=== PATIENT | female | born 1955 | race Caucasian/White ===

== ENCOUNTER → 2017-11-25 09:43 | Outpatient (CLI) | payer OTHER, SELFPAY ==
[2017-11-25 10:34] LABS: Alanine Aminotransferase 23 IU/L (9-52); Albumin 4.2 g/dL (3.5-5.0); Albumin Globulin Ratio 1.6 (1.0-2.8); Alkaline Phosphatase 77 U/L (38-126); Aspartate Aminotransferase 17 IU/L (14-36); BUN Creatinine Ratio 21.4 (6-22); Bilirubin Total 0.8 mg/dL (0.2-1.3); Blood Urea Nitrogen 15 mg/dL (7-17); Calcium 10.2 mg/dL (8.4-10.2); Carbon Dioxide 31 mmol/L (22-32); Chloride 100 mmol/L (98-107); Estimated Glomerular Filt Rate > 60.0 mL/min (>60); Globulin 2.6 g/dL (1.7-4.1); Glucose 170 mg/dL (80-110); HEMOLYSIS < 15 (0-50); Potassium 5.2 mmol/L (3.4-5.1); Sodium 139 mmol/L (137-145); Total Protein 6.8 g/dL (6.3-8.2)
[2017-11-25 10:50] LABS: Hemoglobin A1C% w Est Avg Glu 7.4 % (4.0-6.0)
== END ==
PROVIDERS: PCP Family Medicine; Visit Provider Family Medicine
DX: E11.9 Type 2 diabetes mellitus without complications (principal)
CPT/HCPCS: 36415; 80053; 83036

== ENCOUNTER → 2018-03-27 08:21 | Outpatient (CLI) | payer OTHER, SELFPAY ==
[2018-03-27 09:09] LABS: Hemoglobin A1C% w Est Avg Glu 7.3 % (4.0-6.0)
[2018-03-27 09:37] LABS: Alanine Aminotransferase 30 IU/L (9-52); Albumin 4.1 g/dL (3.5-5.0); Albumin Globulin Ratio 1.5 (1.0-2.8); Alkaline Phosphatase 77 U/L (38-126); Aspartate Aminotransferase 28 IU/L (14-36); Bilirubin Total 0.7 mg/dL (0.2-1.3); Blood Urea Nitrogen 14 mg/dL (7-17); Calcium 10.3 mg/dL (8.4-10.2); Carbon Dioxide 28 mmol/L (22-32); Chloride 104 mmol/L (98-107); Cholesterol 180 mg/dL (140-199); Estimated Glomerular Filt Rate > 60.0 mL/min (>60); Globulin 2.7 g/dL (1.7-4.1); Glucose 159 mg/dL (80-110); HDL Cholesterol 71 mg/dL (40-60); HEMOLYSIS < 15 (0-50); LDL Cholesterol Calculated 77 mg/dL (<100); Potassium 4.9 mmol/L (3.4-5.1); Sodium 142 mmol/L (137-145); Total Protein 6.8 g/dL (6.3-8.2); Triglycerides 159 mg/dL (35-150)
== END ==
PROVIDERS: PCP Family Medicine; Visit Provider Family Medicine
DX: E03.9 Hypothyroidism, unspecified (principal); E11.65 Type 2 diabetes mellitus with hyperglycemia; I10 Essential (primary) hypertension; Z79.4 Long term (current) use of insulin
CPT/HCPCS: 36415; 80053; 80061; 83036

== ENCOUNTER → 2018-09-26 10:36 | Outpatient (CLI) | payer OTHER, SELFPAY ==
--- NOTE | 2018-09-26 10:39 | DI.RAD.S_ITS ---
PROCEDURE: XR CHEST 2V INDICATIONS: shortness of breath TECHNIQUE: 2 views of the chest were acquired. COMPARISON: [facility], , CHEST 2 VIEW, 09/07/2015, 15:30. FINDINGS: Surgical changes and devices: None. Lungs and pleura: Lungs are clear. No pleural effusions or pneumothorax. Mediastinum: Mediastinal contours are normal. Heart size is normal. Bones and chest wall: No suspicious bony abnormalities. Soft tissues appear unremarkable. IMPRESSION: No acute cardiopulmonary disease. Dictated by: Bryson Martini M.D. on 09/26/2018 at 11:06 Approved by: Bryson Martini M.D. on 09/26/2018 at 11:06
== END ==
PROVIDERS: PCP Family Medicine; Visit Provider Family Medicine
DX: R06.02 Shortness of breath (principal); J45.909 Unspecified asthma, uncomplicated
CPT/HCPCS: 71046

== ENCOUNTER → 2018-09-27 09:38 | Outpatient (CLI) | payer OTHER, SELFPAY ==
[2018-09-27 10:40] LABS: Add Manual Diff / Slide Review NO; Basophils Absolute Auto 100 /uL (0-100); Eosinophils Absolute Auto 200 /uL (0-450); Eosinophils Percent Auto 2.6 % (2-4); Hemoglobin 14.4 g/dL (12.0-16.0); Lymphocytes Absolute Auto 2100 /uL (1100-4500); Lymphocytes Percent Auto 28.7 % (25-40); Mean Corpuscular HGB Conc 34.2 % (30-36); Mean Corpuscular Hemoglobin 30.6 PG (26-34); Mean Corpuscular Volume 89.5 fL (80-100); Monocytes Absolute Auto 600 /uL (0-900); Monocytes Percent Auto 7.8 % (3-14); Neutrophils Absolute Auto 4300 /uL (1500-7000); Neutrophils Percent Auto 59.9 % (50-75); Platelet Count 301 X10^3/uL (150-400); Red Blood Cell Count 4.69 X10^6/uL (4.0-5.2); Red Cell Distribution Width 13.6 % (11.6-14.8); White Blood Cell Count 7.2 X10^3/uL (4.5-11.0)
[2018-09-27 10:44] LABS: Appearance Urine UA CLEAR; Bilirubin Urine UA NEGATIVE (NEGATIVE); Color Urine UA YELLOW; Glucose Urine UA NEGATIVE (Negative); Ketones Urine UA NEGATIVE (NEGATIVE); Leukocyte Esterase Urine UA NEGATIVE (NEGATIVE); Nitrite Urine UA NEGATIVE (Negative); Occult Blood Urine UA NEGATIVE (Negative); Protein Urine UA NEGATIVE (Negative); Specific Gravity Urine UA 1.025 (1.000-1.035); Urobilinogen Urine UA 0.2 E.U./dL (0.2)
[2018-09-27 10:51] LABS: Hemoglobin A1C% w Est Avg Glu 7.5 % (4.0-6.0)
[2018-09-27 11:11] LABS: Alanine Aminotransferase 14 IU/L (9-52); Albumin Globulin Ratio 1.3 (1.0-2.8); Alkaline Phosphatase 91 U/L (38-126); Aspartate Aminotransferase 18 IU/L (14-36); Bilirubin Total 0.5 mg/dL (0.2-1.3); Blood Urea Nitrogen 9 mg/dL (7-17); Calcium 9.3 mg/dL (8.4-10.2); Carbon Dioxide 26 mmol/L (22-32); Chloride 104 mmol/L (98-107); Cholesterol 167 mg/dL (140-199); Estimated Glomerular Filt Rate > 60.0 mL/min (>60); Globulin 3.1 g/dL (1.7-4.1); Glucose 161 mg/dL (80-110); HDL Cholesterol 58 mg/dL (40-60); HEMOLYSIS 16 (0-50); LDL Cholesterol Calculated 85 mg/dL (<100); Potassium 4.4 mmol/L (3.4-5.1); Sodium 137 mmol/L (137-145); Total Protein 7.1 g/dL (6.3-8.2); Triglycerides 121 mg/dL (35-150)
[2018-09-27 11:14] LABS: B Type Natriuretic Peptide < 100 (<100)
[2018-09-27 11:26] LABS: Free T3, Triiodothyronine Free 3.37 pg/mL (2.77-5.27); Free T4, Direct Thyroxine 0.98 ng/dL (0.78-2.19)
[2018-09-27 11:39] LABS: Thyroid Stimulating Hormone 0.77 uIU/mL (0.47-4.68)
== END ==
PROVIDERS: PCP Family Medicine; Visit Provider Family Medicine
DX: E11.65 Type 2 diabetes mellitus with hyperglycemia (principal); E66.01 Morbid (severe) obesity due to excess calories; E78.5 Hyperlipidemia, unspecified; I10 Essential (primary) hypertension; J45.909 Unspecified asthma, uncomplicated; R06.02 Shortness of breath; Z79.4 Long term (current) use of insulin
CPT/HCPCS: 36415; 80053; 80061; 81003; 83036; 83880; 84439; 84443; 84481; 85025

== ENCOUNTER → 2019-02-15 10:04 | Outpatient (CLI) | payer OTHER, SELFPAY ==
[2019-02-15 11:12] LABS: Hemoglobin A1C% w Est Avg Glu 7.5 % (4.0-6.0)
[2019-02-15 11:15] LABS: Alanine Aminotransferase 17 IU/L (<35); Albumin 4.3 g/dL (3.5-5.0); Albumin Globulin Ratio 1.7 (1.0-2.8); Alkaline Phosphatase 89 U/L (38-126); Aspartate Aminotransferase 20 IU/L (14-36); BUN Creatinine Ratio 23.3 (6-22); Bilirubin Total 0.8 mg/dL (0.2-1.3); Blood Urea Nitrogen 14 mg/dL (7-17); Carbon Dioxide 27 mmol/L (22-32); Chloride 104 mmol/L (98-107); Cholesterol 198 mg/dL (140-199); Estimated Glomerular Filt Rate > 60.0 mL/min (>60); Globulin 2.6 g/dL (1.7-4.1); Glucose 169 mg/dL (80-110); HDL Cholesterol 63 mg/dL (40-60); HEMOLYSIS < 15 (0-50); LDL Cholesterol Calculated 104 mg/dL (<100); Potassium 4.9 mmol/L (3.4-5.1); Sodium 139 mmol/L (137-145); Total Protein 6.9 g/dL (6.3-8.2); Triglycerides 154 mg/dL (35-150)
== END ==
PROVIDERS: PCP Family Medicine; Visit Provider Family Medicine
DX: E11.65 Type 2 diabetes mellitus with hyperglycemia (principal); Z79.4 Long term (current) use of insulin
CPT/HCPCS: 36415; 80053; 80061; 83036

== ENCOUNTER 2019-06-10 12:52 | Emergency (ER) | payer MEDICARE, SELFPAY ==
[2019-06-10 13:00] VITALS: BP 171/86; PULSE 89; RESP 18; TEMP 37; O2SAT 98
[2019-06-10 14:57] LABS: Amorphous Sediment Urine 1+; Bacteria Urine Few (2-10); Culture Indicated Urine Specimen Cultured; Mucus Urine 1+ (Negative); RBC Urine 30-100/HPF (0-5/HPF); Squamous Epithelial Cell Urine 1-5 /HPF (0-5/HPF); WBC Urine 1-5/HPF (0-5/HPF)
[2019-06-10 15:15] LABS: Add Manual Diff / Slide Review NO; Basophils Absolute Auto 100 /uL (0-100); Basophils Percent Auto 0.6 % (0-2); Eosinophils Absolute Auto 200 /uL (0-450); Eosinophils Percent Auto 1.5 % (2-4); Hemoglobin 14.3 g/dL (12.0-16.0); Lymphocytes Absolute Auto 1500 /uL (1100-4500); Lymphocytes Percent Auto 13.4 % (25-40); Mean Corpuscular HGB Conc 33.3 % (30-36); Mean Corpuscular Hemoglobin 30.3 PG (26-34); Mean Corpuscular Volume 90.8 fL (80-100); Monocytes Absolute Auto 800 /uL (0-900); Monocytes Percent Auto 7.1 % (3-14); Neutrophils Absolute Auto 8800 /uL (1500-7000); Neutrophils Percent Auto 77.4 % (50-75); Platelet Count 305 X10^3/uL (150-400); Red Blood Cell Count 4.74 X10^6/uL (4.0-5.2); Red Cell Distribution Width 13.5 % (11.6-14.8); White Blood Cell Count 11.3 X10^3/uL (4.5-11.0)
[2019-06-10] MEDS: ONDANSETRON 4 MG/2 ML INJ IV (15:31)
[2019-06-10 15:32] LABS: Prothrombin Time 11.5 SECONDS (10.1-12.7)
[2019-06-10] MEDS: SODIUM CHLORIDE 0.9% 1,000 ML 1000 ML IV (15:32)
[2019-06-10] MEDS: MORPHINE 4 MG/ML INJ IV (15:32)
[2019-06-10 15:34] LABS: PTT Partial Thromboplastin Tim 34 SECONDS (26.4-36.2)
[2019-06-10 15:38] LABS: Alanine Aminotransferase 18 IU/L (<35); Albumin 4.4 g/dL (3.5-5.0); Albumin Globulin Ratio 1.4 (1.0-2.8); Alkaline Phosphatase 81 U/L (38-126); Amylase 92 U/L (30-110); Aspartate Aminotransferase 23 IU/L (14-36); BUN Creatinine Ratio 17.1 (6-22); Bilirubin Total 0.4 mg/dL (0.2-1.3); Blood Urea Nitrogen 12 mg/dL (7-17); Calcium 10.3 mg/dL (8.4-10.2); Carbon Dioxide 28 mmol/L (22-32); Chloride 105 mmol/L (98-107); Estimated Glomerular Filt Rate > 60.0 mL/min (>60); Globulin 3.2 g/dL (1.7-4.1); Glucose 179 mg/dL (80-110); HEMOLYSIS 18 (0-50); Lipase 80 U/L (23-300); Potassium 4.7 mmol/L (3.4-5.1); Sodium 141 mmol/L (137-145); Total Protein 7.6 g/dL (6.3-8.2)
--- NOTE | 2019-06-10 15:53 | DI.CT.S_ITS ---
PROCEDURE: CT ABDOMEN PELVIS W CON INDICATIONS: llq pain TECHNIQUE: After the administration of intravenous contrast, 5 mm thick sections acquired from the diaphragm to the symphysis. 5 mm coronal and sagittal reformats were acquired. For radiation dose reduction, the following was used: automated exposure control, adjustment of mA and/or kV according to patient size. COMPARISON: [facility], CT, ABDOMEN/PELVIS WITH CONTRAST, 04/28/2016, 8:15. FINDINGS: Image quality: Excellent. ABDOMEN: Lung bases: Lung bases are clear. Heart size is normal. Solid organs: Liver is normal in size and enhancement. Hepatic steatosis is present. Gallbladder has been removed. Common bile duct is mildly prominent measuring 10 mm, unchanged. Pancreas enhances normally. Spleen is normal in size and enhancement. No adrenal nodules. Kidneys demonstrate normal size and enhancement. There is very minimal appearance of pelviocaliectasis within the left kidney. Punctate calcification is noted within the distal ureter approximately 5 mm proximal to the ureterovesicular junction. Bilateral renal cysts are noted. Peritoneum and bowel: Bowel loops are nonobstructive. The transverse, descending and sigmoid colon are incompletely distended. Nodes and vessels: No retroperitoneal or mesenteric adenopathy by size criteria. Aorta and inferior vena cava are normal in size. Miscellaneous: No ventral hernias. PELVIS: Genitourinary: Bladder wall thickness is normal. Miscellaneous: No inguinal hernias or adenopathy. Bones: No suspicious bony lesions. No vertebral body compression fractures. IMPRESSION: 1. Punctate calcification within the distal left ureter as above. Minimal left pelviocaliectasis is noted. 2. Mildly thickened appearance of the left colon, possibly related to incomplete distention. While developing colitis cannot be definitively excluded, it is felt to be less likely in absence of appropriate clinical symptoms. Dictated by: Deb Slater M.D. on 06/10/2019 at 16:21 Approved by: Deb Slater M.D. on 06/10/2019 at 16:25
[2019-06-10] MEDS: KETOROLAC 60 MG/2 ML VIAL 30 MG IV (17:33)
[2019-06-10 18:23] VITALS: BP 125/75; PULSE 80; RESP 16; O2SAT 97
--- NOTE | 2019-06-10 19:12 | ED.FEMALEGU ---
HPI - Female Genitourinary <Kathleen Lemer, STAFF SONOGRAPHER-BC - Last Filed: 06/10/19 19:17> General Chief complaint: Urogenital-Female Stated complaint: Extreme left side abd pain Time Seen by Provider: 06/10/19 14:27 Source: patient and family Mode of arrival: Wheelchair Limitations: no limitations History of Present Illness HPI Narrative: The patient is a 63-year-old female former smoker with history of type 2 diabetes, hypertension hyperlipidemia who presents with a chief complaint of left inguinal pain. She states that the pain is also in her left flank. She denies any personal history of kidney stones, but states there is a strong family history. She states she feels like she has to urinate, but then can't go. She states the pain is colicky in nature comes and goes and is severe enough that she feels like she is going to vomit. She states the pain is worse than childbirth. She denies any dysuria, fevers. She denies any vaginal discharge. She is concerned about kidney stones. She states that the pain radiates down her left leg. She states it is sudden onset, approximately 2 hours prior to arrival. Related Data Home Medications Medication Instructions Recorded Confirmed [facility] syr/needle each 03/28/18 06/10/19 aspirin 81 mg tablet,delayed 81 mg PO DAILY 11/20/18 06/10/19 release Syringes 1 syr DIRECTED 06/10/19 06/10/19 albuterol sulfate 3 ml INH Q4HP PRN 06/10/19 06/10/19 duloxetine 60 mg PO DAILY 06/10/19 06/10/19 insulin NPH isoph U-100 human 26 unit SUBCUT DAILY 06/10/19 06/10/19 [Humulin N NPH U-100 Insulin] liothyronine [Cytomel] 5 mcg PO DAILY 06/10/19 06/10/19 lisinopril 20 mg PO QPM 06/10/19 06/10/19 omeprazole 20 mg PO DAILY 06/10/19 06/10/19 simvastatin 20 mg PO BEDTIME 06/10/19 06/10/19 Previous Rx's Medication Instructions Recorded albuterol sulfate 90 mcg/actuation 2 puff INHALATION Q4-6H PRN #8 gram 11/28/17 aerosol inhaler Delica Lancets #100 each 12/28/17 Verio IQ Rechargeable meter #1 ea 12/28/17 Verio IQ test strips #100 each 12/28/17 benzonatate 100 mg capsule 100 mg PO TIDP PRN #30 cap 09/26/18 metformin 500 mg tablet 500 mg PO BID #180 tab 02/27/19 levothyroxine 50 mcg tablet 50 mcg PO QDAY #90 tab 04/01/19 lorazepam 2 mg tablet 2 mg PO BIDP PRN #60 tab 05/09/19 montelukast 10 mg tablet 10 mg PO QPM #30 tab 05/22/19 hydrocodone-acetaminophen [Medon] 1 tab PO Q4-6H PRN #10 tab 06/10/19 ketorolac 10 mg PO TID PRN #15 tab 06/10/19 ondansetron 4 mg PO Q6H PRN #20 tab 06/10/19 tamsulosin [Flomax] 0.4 mg PO DAILY #7 cap 06/10/19 Allergies Allergy/AdvReac Type Severity Reaction Status Date / Time No Known Drug Allergies Allergy Verified 03/12/19 11:31 Review of Systems <CRISPIN Dior - Last Filed: 06/10/19 19:17> Review of Systems Narrative: GENERAL: Denies chills, fatigue, malaise, fever, sweats. HEENT: Denies sinus pain, ear pain, sore throat, difficulty swallowing, dizziness. RESPIRATORY: Denies dyspnea, cough, wheezing, hemoptysis, sputum. CARDIOVASCULAR: Denies chest pain, palpitations, orthopnea, edema, GASTROINTESTINAL: See HPI : See HPI MUSCULOSKELETAL: denies weakness, joint pain, or bony pain SKIN: Denies rash, skin lesions, or other NEUROLOGIC: Denies weakness, headache, numbness, change in speech, confusion, seizures, incoordination. PSYCHIATRIC: No concerning psychosocial issues. 12 point review of systems is negative except for those stated above Patient History <CRISPIN Dior - Last Filed: 06/10/19 19:17> Medical History Depression (Inactive) Depression (Chronic) Diabetes (Inactive) Diabetes (Chronic) Fibromyalgia (Inactive) Fibromyalgia (Chronic) Hyperlipemia (Chronic) Hypertension (Chronic) Hypothyroidism (Chronic) Neuropathy (Chronic) Osteoarthritis (Chronic) Surgical History Hx of foot surgery (Resolved Unknown) Hx of hysterectomy (Resolved Unknown) Hx of knee surgery (Resolved Unknown) Family History Father Cancer Diabetes mellitus Substance Use Type: does not use Exam <CRISPIN Dior - Last Filed: 06/10/19 19:17> Narrative Exam Narrative: GENERAL: Obese female, appears uncomfortable HEAD: Atraumatic. Normocephalic. No temporal or scalp tenderness. EYES: Pupils equal round and reactive. Extraocular motions intact. No scleral icterus. No injection or drainage. ENT: Nose without bleeding, purulent drainage or septal hematoma. Throat without erythema, tonsillar hypertrophy or exudate. Uvula midline. Airway patent. NECK: Trachea midline. No JVD or lymphadenopathy. Supple, nontender, no meningeal signs. CARDIOVASCULAR: Regular rate and rhythm RESPIRATORY: Clear to auscultation. Breath sounds equal bilaterally. No wheezes, rales, or rhonchi. No cough. No increased respiratory effort. No accessory muscle use. GASTROINTESTINAL: Abdomen soft, active bowel sounds all 4 quadrants, pain to palpation left lower quadrant. No guarding noted. EXTREMITIES: No clubbing, cyanosis, or edema. No joint tenderness, effusion, or edema noted. BACK: Nontender without deformity or crepitance. CVA tenderness left side. NEURO: AOx3. SKIN: No rash or erythema on visible skin Initial Vital Signs Initial Vital Signs: Vital Signs Temperature 98.6 F 06/10/19 13:00 Pulse Rate 89 06/10/19 13:00 Respiratory Rate 18 06/10/19 13:00 Blood Pressure 171/86 H 06/10/19 13:00 Pulse Oximetry 98 06/10/19 13:00 <Kathleen Gomes DO - Last Filed: 06/10/19 19:59> Initial Vital Signs Initial Vital Signs: Vital Signs Temperature 98.6 F 06/10/19 13:00 Pulse Rate 89 06/10/19 13:00 Respiratory Rate 18 06/10/19 13:00 Blood Pressure 171/86 H 06/10/19 13:00 Pulse Oximetry 98 02/24/20 13:00 Scores <CRISPIN Dior - Last Filed: 06/10/19 19:17> GCS Elliott coma scale eye opening: Spontaneous Elliott coma scale verbal response: Orientated [place] coma scale motor response: Obey commands Elliott coma scale total score: 15 Course <LEROY DiorBC - Last Filed: 06/10/19 19:17> Orders Ordered: ED Orders 06/10/19 13:32 EKG-12 Lead Stat 06/10/19 14:45 Urine Culture Stat Urine Microscopic Stat 06/10/19 15:00 Complete Blood Count AUTO DIFF Stat 06/10/19 15:20 Amylase Stat Comprehensive Metabolic Panel Stat Lipase Stat Partial Thromboplastin Time Stat Prothrombin Time INR Stat 06/10/19 15:53 CT abdomen pelvis w con Stat Discontinued Medications Sodium Chloride (Normal Saline 0.9%) 1,000 mls @ 1,000 mls/hr IV BOLUS ONE Stop: 06/10/19 15:33 Last Infusion: 06/10/19 18:05 Dose: 0 mls/hr Documented by: Admin: 06/10/19 15:32 Dose: 1,000 mls/hr Documented by: NEELA Ketorolac Tromethamine (Toradol) 30 mg IV NOW ONE Stop: 06/10/19 16:38 Last Admin: 06/10/19 17:33 Dose: 30 mg Documented by: NEELA Morphine Sulfate (Morphine) 4 mg IV NOW ONE Stop: 06/10/19 14:35 Last Admin: 06/10/19 15:32 Dose: 4 mg Documented by: NEELA Ondansetron HCl (Zofran) 4 mg IV NOW ONE Stop: 06/10/19 14:35 Last Admin: 06/10/19 15:31 Dose: 4 mg Documented by: NEELA Vital Signs Vital signs: Vital Signs - 8 hr 06/10/19 13:00 06/10/19 18:23 Temperature 98.6 F Pulse Rate 89 80 Respiratory Rate 18 16 Blood Pressure 171/86 H 125/75 Pulse Oximetry 98 97 <Kathleen Gomes DO - Last Filed: 06/10/19 19:59> Orders Ordered: ED Orders 06/10/19 13:32 EKG-12 Lead Stat 06/10/19 14:45 Urine Culture Stat Urine Microscopic Stat 06/10/19 15:00 Complete Blood Count AUTO DIFF Stat 06/10/19 15:20 Amylase Stat Comprehensive Metabolic Panel Stat Lipase Stat Partial Thromboplastin Time Stat Prothrombin Time INR Stat 06/10/19 15:53 CT abdomen pelvis w con Stat Discontinued Medications Sodium Chloride (Normal Saline 0.9%) 1,000 mls @ 1,000 mls/hr IV BOLUS ONE Stop: 06/10/19 15:33 Last Infusion: 06/10/19 18:05 Dose: 0 mls/hr Documented by: Admin: 06/10/19 15:32 Dose: 1,000 mls/hr Documented by: NEELA Ketorolac Tromethamine (Toradol) 30 mg IV NOW ONE Stop: 06/10/19 16:38 Last Admin: 06/10/19 17:33 Dose: 30 mg Documented by: NEELA Morphine Sulfate (Morphine) 4 mg IV NOW ONE Stop: 06/10/19 14:35 Last Admin: 06/10/19 15:32 Dose: 4 mg Documented by: NEELA Ondansetron HCl (Zofran) 4 mg IV NOW ONE Stop: 06/10/19 14:35 Last Admin: 06/10/19 15:31 Dose: 4 mg Documented by: NEELA Vital Signs Vital signs: Vital Signs - 8 hr 06/10/19 13:00 06/10/19 18:23 Temperature 98.6 F Pulse Rate 89 80 Respiratory Rate 18 16 Blood Pressure 171/86 H 125/75 Pulse Oximetry 98 97 MDM - Female Genitourinary <JUDY Dior- - Last Filed: 06/10/19 19:17> Lab Data Result diagrams: 06/10/19 15:00 06/10/19 15:20 Labs: Lab Results 06/10/19 06/10/19 06/10/19 Range/Units 14:45 15:00 15:20 WBC 11.3 H (4.5-11.0) X10^3/uL RBC 4.74 (4.0-5.2) X10^6/uL Hgb 14.3 (12.0-16.0) g/dL Hct 43.0 (36-46) % MCV 90.8 (80-100) fL MCH 30.3 (26-34) PG MCHC 33.3 (30-36) % RDW 13.5 (11.6-14.8) % Plt Count 305 (150-400) X10^3/uL Neut % (Auto) 77.4 H (50-75) % Lymph % (Auto) 13.4 L (25-40) % [place] % (Auto) 7.1 (3-14) % Eos % (Auto) 1.5 L (2-4) % Baso % (Auto) 0.6 (0-2) % Neut # (Auto) 8800 H (4722-6431) /uL Lymph # (Auto) 1500 (9138-3992) /uL [place] # (Auto) 800 (0-900) /uL Eos # (Auto) 200 (0-450) /uL Baso # (Auto) 100 (0-100) /uL PT 11.5 (10.1-12.7) SECONDS INR 1.0 (0.9-1.3) APTT 34 (26.4-36.2) SECONDS Sodium (137-145) mmol/L Potassium (3.4-5.1) mmol/L Chloride (98-107) mmol/L Carbon Dioxide (22-32) mmol/L BUN (7-17) mg/dL Creatinine (0.52-1.04) mg/dL Estimated GFR (>60) mL/min BUN/Creatinine Ratio (6-22) Glucose (80-110) mg/dL Calcium (8.4-10.2) mg/dL Total Bilirubin (0.2-1.3) mg/dL AST (14-36) IU/L ALT (<35) IU/L Alkaline Phosphatase (38-126) U/L Total Protein (6.3-8.2) g/dL Albumin (3.5-5.0) g/dL Globulin (1.7-4.1) g/dL Albumin/Globulin Ratio (1.0-2.8) Amylase (30-110) U/L Lipase (23-300) U/L Urine RBC 30-100/hpf H (0-5/HPF) Urine WBC 1-5/hpf (0-5/HPF) Ur Squamous Epith Cells 1-5 /hpf (0-5/HPF) Amorphous Sediment 1+ Urine Bacteria Few (2-10) H (None) Urine Mucus 1+ H (Negative) Ur Culture Indicated? Specimen cultured 06/10/19 06/10/19 Range/Units 15:20 15:20 WBC (4.5-11.0) X10^3/uL RBC (4.0-5.2) X10^6/uL Hgb (12.0-16.0) g/dL Hct (36-46) % MCV (80-100) fL MCH (26-34) PG MCHC (30-36) % RDW (11.6-14.8) % Plt Count (150-400) X10^3/uL Neut % (Auto) (50-75) % Lymph % (Auto) (25-40) % [place] % (Auto) (3-14) % Eos % (Auto) (2-4) % Baso % (Auto) (0-2) % Neut # (Auto) (8545-8394) /uL Lymph # (Auto) (5490-5952) /uL [place] # (Auto) (0-900) /uL Eos # (Auto) (0-450) /uL Baso # (Auto) (0-100) /uL PT (10.1-12.7) SECONDS INR (0.9-1.3) APTT (26.4-36.2) SECONDS Sodium 141 (137-145) mmol/L Potassium 4.7 (3.4-5.1) mmol/L Chloride 105 (98-107) mmol/L Carbon Dioxide 28 (22-32) mmol/L BUN 12 (7-17) mg/dL Creatinine 0.70 (0.52-1.04) mg/dL Estimated GFR > 60.0 (>60) mL/min BUN/Creatinine Ratio 17.1 (6-22) Glucose 179 H (80-110) mg/dL Calcium 10.3 H (8.4-10.2) mg/dL Total Bilirubin 0.4 (0.2-1.3) mg/dL AST 23 (14-36) IU/L ALT 18 (<35) IU/L Alkaline Phosphatase 81 (38-126) U/L Total Protein 7.6 (6.3-8.2) g/dL Albumin 4.4 (3.5-5.0) g/dL Globulin 3.2 (1.7-4.1) g/dL Albumin/Globulin Ratio 1.4 (1.0-2.8) Amylase 92 (30-110) U/L Lipase 80 (23-300) U/L Urine RBC (0-5/HPF) Urine WBC (0-5/HPF) Ur Squamous Epith Cells (0-5/HPF) Amorphous Sediment Urine Bacteria (None) Urine Mucus (Negative) Ur Culture Indicated? Urine Dip Bedside Urine Glucose Negative Bedside Urine Bilirubin - Negative Bedside Urine Ketone - Negative Urine Specific [place] 1.025 Bedside Urine Occult Blood +++ Bedside Urine pH 5.0 Bedside Urine Protein +/- 15 Bedside Urine Urobilinogen - Negative Bedside Urine Nitrite - Negative Bedside Urine Leukocytes - Negative Esterase Imaging Data CT scan - abdomen/pelvis: Radiologist's Impression: [address] [place] [id number] [address] Scan Report Signed Patient: Isa Hoffman JMR#: [id number] : 8Acct:[id number] Age/Sex: 63 / FDate of Service: 06/10/19 Loc: ED Accession Number: [id number] Procedure: CT abdomen pelvis w con Ordering Provider: Kathleen Leonard STAFF SONOGRAPHER- PROCEDURE: CT ABDOMEN PELVIS W CON INDICATIONS: llq pain TECHNIQUE: After the administration of intravenous contrast, 5 mm thick sections acquired from the diaphragm to the symphysis. 5 mm coronal and sagittal reformats were acquired. For radiation dose reduction, the following was used: automated exposure control, adjustment of mA and/or kV according to patient size. COMPARISON: [facility], CT, ABDOMEN/PELVIS WITH CONTRAST, 04/28/2016, 8:15. FINDINGS: Image quality: Excellent. ABDOMEN: Lung bases: Lung bases are clear. Heart size is normal. Solid organs: Liver is normal in size and enhancement. Hepatic steatosis is present. Gallbladder has been removed. Common bile duct is mildly prominent measuring 10 mm, unchanged. Pancreas enhances normally. Spleen is normal in size and enhancement. No adrenal nodules. Kidneys demonstrate normal size and enhancement. There is very minimal appearance of pelviocaliectasis within the left kidney. Punctate calcification is noted within the distal ureter approximately 5 mm proximal to the ureterovesicular junction. Bilateral renal cysts are noted. Peritoneum and bowel: Bowel loops are nonobstructive. The transverse, descending and sigmoid colon are incompletely distended. Nodes and vessels: No retroperitoneal or mesenteric adenopathy by size criteria. Aorta and inferior vena cava are normal in size. Miscellaneous: No ventral hernias. PELVIS: Genitourinary: Bladder wall thickness is normal. Miscellaneous: No inguinal hernias or adenopathy. Bones: No suspicious bony lesions. No vertebral body compression fractures. IMPRESSION: 1. Punctate calcification within the distal left ureter as above. Minimal left pelviocaliectasis is noted. 2. Mildly thickened appearance of the left colon, possibly related to incomplete distention. While developing colitis cannot be definitively excluded, it is felt to be less likely in absence of appropriate clinical symptoms. Dictated by: Deb Slater M.D. on 06/10/2019 at 16:21 Approved by: Deb Slater M.D. on 06/10/2019 at 16:25 [facility] Narrative Medical decision making narrative: The patient is a 63-year-old female who presents with a chief complaint of left lower quadrant and left sided pain. Imaging is concerning for punctate stones and the left ureter. CT with contrast was obtained as the patient has no history of stones. She denies any dysuria, has no nitrates in urine, do not see need for antibiotic therapy at this point time. She is able to tolerate p.o. food and fluids in oral medications. I discussed at length the importance of follow-up with primary care provider. Can medially she has an appointment for 10:30 a.m. tomorrow. I discussed at length monitoring for signs symptoms of infection, straining her urine, not combining narcotics with benzos, sedating agents or alcohol. Discussed not combining Toradol with any anti-inflammatory medications. Give her prescriptions of Toradol, Medon, Zofran and Flomax. Patient has no questions or concerns upon discharge and states understanding of return precautions of any acute concerns and would like down fluids as well as follow-up care. <Kathleen Gomes, DO - Last Filed: 06/10/19 19:59> Lab Data Labs: Lab Results 06/10/19 06/10/19 06/10/19 Range/Units 14:45 15:00 15:20 WBC 11.3 H (4.5-11.0) X10^3/uL RBC 4.74 (4.0-5.2) X10^6/uL Hgb 14.3 (12.0-16.0) g/dL Hct 43.0 (36-46) % MCV 90.8 (80-100) fL MCH 30.3 (26-34) PG MCHC 33.3 (30-36) % RDW 13.5 (11.6-14.8) % Plt Count 305 (150-400) X10^3/uL Neut % (Auto) 77.4 H (50-75) % Lymph % (Auto) 13.4 L (25-40) % [place] % (Auto) 7.1 (3-14) % Eos % (Auto) 1.5 L (2-4) % Baso % (Auto) 0.6 (0-2) % Neut # (Auto) 8800 H (4223-7536) /uL Lymph # (Auto) 1500 (3748-5671) /uL [place] # (Auto) 800 (0-900) /uL Eos # (Auto) 200 (0-450) /uL Baso # (Auto) 100 (0-100) /uL PT 11.5 (10.1-12.7) SECONDS INR 1.0 (0.9-1.3) APTT 34 (26.4-36.2) SECONDS Sodium (137-145) mmol/L Potassium (3.4-5.1) mmol/L Chloride (98-107) mmol/L Carbon Dioxide (22-32) mmol/L BUN (7-17) mg/dL Creatinine (0.52-1.04) mg/dL Estimated GFR (>60) mL/min BUN/Creatinine Ratio (6-22) Glucose (80-110) mg/dL Calcium (8.4-10.2) mg/dL Total Bilirubin (0.2-1.3) mg/dL AST (14-36) IU/L ALT (<35) IU/L Alkaline Phosphatase (38-126) U/L Total Protein (6.3-8.2) g/dL Albumin (3.5-5.0) g/dL Globulin (1.7-4.1) g/dL Albumin/Globulin Ratio (1.0-2.8) Amylase (30-110) U/L Lipase (23-300) U/L Urine RBC 30-100/hpf H (0-5/HPF) Urine WBC 1-5/hpf (0-5/HPF) Ur Squamous Epith Cells 1-5 /hpf (0-5/HPF) Amorphous Sediment 1+ Urine Bacteria Few (2-10) H (None) Urine Mucus 1+ H (Negative) Ur Culture Indicated? Specimen cultured 06/10/19 06/10/19 Range/Units 15:20 15:20 WBC (4.5-11.0) X10^3/uL RBC (4.0-5.2) X10^6/uL Hgb (12.0-16.0) g/dL Hct (36-46) % MCV (80-100) fL MCH (26-34) PG MCHC (30-36) % RDW (11.6-14.8) % Plt Count (150-400) X10^3/uL Neut % (Auto) (50-75) % Lymph % (Auto) (25-40) % [place] % (Auto) (3-14) % Eos % (Auto) (2-4) % Baso % (Auto) (0-2) % Neut # (Auto) (7922-4465) /uL Lymph # (Auto) (1659-1849) /uL [place] # (Auto) (0-900) /uL Eos # (Auto) (0-450) /uL Baso # (Auto) (0-100) /uL PT (10.1-12.7) SECONDS INR (0.9-1.3) APTT (26.4-36.2) SECONDS Sodium 141 (137-145) mmol/L Potassium 4.7 (3.4-5.1) mmol/L Chloride 105 (98-107) mmol/L Carbon Dioxide 28 (22-32) mmol/L BUN 12 (7-17) mg/dL Creatinine 0.70 (0.52-1.04) mg/dL Estimated GFR > 60.0 (>60) mL/min BUN/Creatinine Ratio 17.1 (6-22) Glucose 179 H (80-110) mg/dL Calcium 10.3 H (8.4-10.2) mg/dL Total Bilirubin 0.4 (0.2-1.3) mg/dL AST 23 (14-36) IU/L ALT 18 (<35) IU/L Alkaline Phosphatase 81 (38-126) U/L Total Protein 7.6 (6.3-8.2) g/dL Albumin 4.4 (3.5-5.0) g/dL Globulin 3.2 (1.7-4.1) g/dL Albumin/Globulin Ratio 1.4 (1.0-2.8) Amylase 92 (30-110) U/L Lipase 80 (23-300) U/L Urine RBC (0-5/HPF) Urine WBC (0-5/HPF) Ur Squamous Epith Cells (0-5/HPF) Amorphous Sediment Urine Bacteria (None) Urine Mucus (Negative) Ur Culture Indicated? Urine Dip Bedside Urine Glucose Negative Bedside Urine Bilirubin - Negative Bedside Urine Ketone - Negative Urine Specific [place] 1.025 Bedside Urine Occult Blood +++ Bedside Urine pH 5.0 Bedside Urine Protein +/- 15 Bedside Urine Urobilinogen - Negative Bedside Urine Nitrite - Negative Bedside Urine Leukocytes - Negative Esterase Discharge Plan Departure Patient Disposition: Home Clinical Impression: Calculus of left ureter Discharge Date/Time: 06/10/19 18:23 Instructions: DI for Kidney Stones Activity Restrictions/Additional Instructions: Your found to have a stone in your left ureter Please push fluids. Please strain your urine Please follow-up with primary care for tomorrow as scheduled. I have given you a prescription of Toradol. This is an NSAID. Do not combine it with other NSAIDs such as Aleve or ibuprofen. I suggest taking it with some food, as it can irritate your stomach. I have given you a prescription of a narcotic for pain. Be aware that this can be constipating and sedating. I encouraged taking with a stool softener, pushing fluids and fiber. Do not take and drive, operate heavy machinery, etc. Do not combine it with any other sedating substances such as alcohol. The combination of narcotics and alcohol and/or other sedatives can be lethal. Please be aware that we do not provide refills of controlled substances in the emergency department. Please follow up with your primary care provider. Please monitor for signs of infections as as burning while you urinate, fever etcetera Prescriptions: New ketorolac 10 mg tablet 10 mg PO TID PRN (Reason: pain) Qty: 15 RF: 0 tamsulosin [Flomax] 0.4 mg capsule 0.4 mg PO DAILY Qty: 7 RF: 0 hydrocodone-acetaminophen [Medon] 5-325 mg tablet 1 tab PO Q4-6H PRN (Reason: pain) Qty: 10 RF: 0 ondansetron 4 mg tablet,disintegrating 4 mg PO Q6H PRN (Reason: nausea and vomiting) Qty: 20 RF: 0 No Action (DME) [facility] syr/needle 31G 1ML/5/16 RF: 0 albuterol sulfate [ProAir HFA] 90 mcg/actuation HFA aerosol inhaler 2 puff INHALATION Q4-6H PRN (Reason: shortness of breath) Qty: 8 RF: 0 (DME) Delica Lancets Qty: 100 RF: 0 (DME) Verio IQ Rechargeable meter Qty: 1 RF: 0 (DME) Verio IQ test strips Qty: 100 RF: 0 metformin 500 mg tablet 500 mg PO BID Qty: 180 RF: 0 levothyroxine 50 mcg tablet 50 mcg PO QDAY Qty: 90 RF: 3 lorazepam [Ativan] 2 mg tablet 2 mg PO BIDP PRN (Reason: anxiety) Qty: 60 RF: 0 montelukast [Singulair] 10 mg tablet 10 mg PO QPM Qty: 30 RF: 0 benzonatate 100 mg capsule 100 mg PO TIDP PRN (Reason: cough) Qty: 30 RF: 1 aspirin [Adult Low Dose Aspirin] 81 mg tablet,delayed release (DR/EC) 81 mg PO DAILY RF: 0 liothyronine [Cytomel] 5 mcg tablet 5 mcg PO DAILY RF: 0 simvastatin 20 mg tablet 20 mg PO BEDTIME RF: 0 Humulin N NPH U-100 Insulin 100 unit/mL suspension 26 unit SUBCUT DAILY RF: 0 duloxetine 60 mg capsule,delayed release(DR/EC) 60 mg PO DAILY RF: 0 Syringes 1 syr DIRECTED RF: 0 albuterol sulfate 2.5 MG/3 ML solution for nebulization 3 ml INH Q4HP PRN (Reason: Shortness Of Breath) RF: 0 omeprazole 20 mg Capsule,Delayed Release(Dr/Ec) 20 mg PO DAILY RF: 0 lisinopril 20 mg tablet 20 mg PO QPM RF: 0 Referrals: Tien Coello DO [Primary Care Provider] -
== END 2019-06-10 18:23 | disposition home or self-care (01) ==
PROVIDERS: Emergency Medicine; Emergency Provider Nurse Practitioner Family; PCP Family Medicine
DX: N20.2 Calculus of kidney with calculus of ureter (principal); E11.8 Type 2 diabetes mellitus with unspecified complications; Z79.4 Long term (current) use of insulin; I10 Essential (primary) hypertension; E78.5 Hyperlipidemia, unspecified
CPT/HCPCS: 36415; 74177; 80053; 81003; 81015; 82150; 83690; 85025; 85610; 85730; 87086; 93005; 96361; 96374; 96375; 99284; J1885; J2270; J2405

== ENCOUNTER → 2019-07-20 08:43 | Outpatient (CLI) | payer MEDICARE, SELFPAY ==
[2019-07-20 09:43] LABS: Free T3, Triiodothyronine Free 2.96 pg/mL (2.77-5.27); Free T4, Direct Thyroxine 1.07 ng/dL (0.78-2.19)
[2019-07-20 13:22] LABS: Cholesterol 202 mg/dL (140-199); HDL Cholesterol 52 mg/dL (40-60); LDL Cholesterol Calculated 120 mg/dL (<100); Triglycerides 149 mg/dL (35-150)
== END ==
PROVIDERS: PCP Family Medicine; Referring Provider Family Medicine; Visit Provider Family Medicine
DX: E03.9 Hypothyroidism, unspecified (principal); E78.5 Hyperlipidemia, unspecified; E11.65 Type 2 diabetes mellitus with hyperglycemia; Z79.4 Long term (current) use of insulin; I10 Essential (primary) hypertension
CPT/HCPCS: 36415; 80061; 83036; 84439; 84443; 84481

== ENCOUNTER → 2019-11-14 12:01 | Outpatient (CLI) | payer MEDICARE, SELFPAY ==
--- NOTE | 2019-11-14 12:03 | DI.US.S_ITS ---
PROCEDURE: US THYROID INDICATIONS: THYROID NODULES TECHNIQUE: Real-time scanning was performed of the thyroid gland, with image documentation. COMPARISON: [facility], US, THYROID, 09/10/2015, 11:04. FINDINGS: Right: Thyroid lobe measures 5.2 x 1.7 x 1.8 cm, and is homogeneous in echotexture. Left: Thyroid lobe measures 4.4 x 1.8 x 1.4 cm, and is homogenous in echotexture. Isthmus: 3 mm thick. Nodule number: 1 Location: Right upper pole Size: 0.6 x 0.4 x 0.5 cm. Composition: Solid Echogenicity: Hyperechoic Shape: wider than tall. Margins: Smooth Echogenic foci: Punctate Total points: 5 ACR TI-RADS category: Moderately suspicious Nodule number: 2 Location: Interpolar right lobe Size: 1.2 x 0.7 x 0.7 cm. Composition: Solid Echogenicity: Hyperechoic Shape: wider than tall. Margins: Smooth Echogenic foci: None Total points: 4 ACR TI-RADS category: Moderately suspicious Nodule number: 3 Location: Mid right lobe Size: 06.6 x 0.4 x 0.5 cm. Composition: solid Echogenicity: Hyperechoic Shape: wider than tall. Margins: Smooth Echogenic foci: None Total points: For ACR TI-RADS category: Moderately suspicious IMPRESSION: Multiple small right-sided thyroid nodules. Recommend continued sonographic surveillance as below. ACR TI-RADS definitions and recommendations: TI-RADS 1 (benign): 0 points. FNA not needed. TI-RADS 2 (not suspicious): 2 points. FNA not needed. TI-RADS 3 (mildly suspicious): 3 points. * FNA if 2.5 cm or larger, follow up if 1.5 cm or larger (at 1, 3, and 5 years). TI-RADS 4 (moderately suspicious): 4-6 points. * FNA if 1.5 cm or larger, follow up if 1 cm or larger (at 1, 2, 3, and 5 years). TI-RADS 5 (highly suspicious): 7 points or more. * FNA if 1 cm or larger, follow up if 0.5 cm or larger (every year for 5 years). Dictated by: Rivera Beard M.D. on 11/14/2019 at 14:13 Approved by: Rivera Beard M.D. on 11/14/2019 at 14:19
== END ==
PROVIDERS: PCP Family Medicine; Referring Provider Family Medicine; Visit Provider Family Medicine
DX: E03.9 Hypothyroidism, unspecified (principal); E04.2 Nontoxic multinodular goiter
CPT/HCPCS: 76536

== ENCOUNTER → 2019-12-17 12:44 | Outpatient (CLI) | payer MEDICARE, SELFPAY ==
--- NOTE | 2019-12-17 | PATH_ITS ---
Note [facility] Accession Number: [id number] TESTS RESULT FLAG UNITS REF RANGE LAB Clinician Provided Cytology Information No. of containers..00 Previously Prepared Cytology Slide 35 Unknown Storage/container code(s) 01 RT THYROID NODULE Clinician ICD10: 01 [place] DIAGNOSIS: 01 RT THYROID NODULE NEGATIVE FOR MALIGNANT CELLS. [place] CATEGORY II. SPECIMEN CONSISTS OF BENIGN FOLLICULAR CELLS, HEMOSIDERIN-LADEN MACROPHAGES, AND COLLOID CONSISTENT WITH A BENIGN FOLLICULAR NODULE. Pathologist ICD10: E04.1 01 Right Thyroid lobe measures 5.2 x 1.7 x 1.8 cm, and is homogeneous in echotoxture. The patient is a woman who has known thyroid modules. She has an ultrasound with surveillance periodically. The nodules may have grown. Additionally, she is having symptoms of pain in the area near her larynx/thyroid cartilage and having some difficulty swallowing with pain. 01 Meryl Patterson MD, Pathologist NPI- [id number] Anthony Purcell, Waste Examiner ([facility]) 01 30 CC, PINK, CLEAR Also received 5 alcohol fixed, 5 quick stained slides, and 1 RNA vial. /[facility] 12/18/2019 1043 [facility] FLAG LEGEND: L-Low Normal,H-High Normal,LL-Alert Low,HH-Alert High <-Panic Low,>-Panic High,A-Abnormal,AA-Critical Abnormal Performed at: 01 =Z [facility] [address] [place] [address] [address], [place] [address] Henry Finney MD, Performed at: 01 [facility] [address], [place], [place] [id number] MD Henry Finney MD Phone: [phone]
--- NOTE | 2019-12-17 12:45 | DI.US.S_ITS ---
PROCEDURE: US FINE NEEDLE ASPIRATION INDICATIONS: NODULE > 1 CM TECHNIQUE: The indications, alternatives, benefits, risks, and complications of the procedure were explained to the patient. Written informed consent was obtained and placed in the chart. The thyroid region was examined sonographically and a site was chosen for ultrasound guided percutaneous sampling. The skin was prepared and draped in the usual fashion, and anesthetized with 1% lidocaine infiltrated from the skin down to the thyroid gland. Multiple passes were then performed, with contents emptied into an appropriate pathology specimen container. A bandage was applied to the area of access at completion of the study. COMPARISON: None. FINDINGS: Location(s) of lesion(s) sampled: Right thyroid, sub cm nodule [place]: 25 gauge hypodermic needles. Number of passes: 6 Medications: 1% lidocaine for local anaesthesia. Complications: None. IMPRESSION: Successful ultrasound-guided thyroid nodule fine needle aspiration, with cytology results pending. Please see chart below for management recommendations based on cytology results. [place] [facility] ReportingRecommendationsNon-diagnostic* Repeat US-guided FNA, with on-site cytology evaluation if possible. * Repeated non-diagnostic nodules without high suspicion US features: close observation vs surgical consult. * Consider surgery if nodule has high suspicion US features, grows >20% in 2 dimensions on followup, or patient has clinical risk factors for malignancy. Benign* If nodule has high suspicion US features: repeat US and FNA within 12 months. * If nodule has low to intermediate suspicion US features: repeat US at 12-24 months. If nodule grows (20% increase in at least 2 dimensions, with minimal increase of 2 mm or >50% change in volume), or development of new suspicious US features, then repeat FNA or continue followup. * If nodule has very low suspicion US features: followup US at >24 months. Atypia of undetermined significance, follicular lesion of undetermined significanceRepeat FNA, molecular testing, followup US, or surgical consult.Follicular neoplasm, suspicious for follicular neoplasmSurgical consult; also consider molecular testing. Suspicious for malignancySurgical consult.MalignantSurgical consult. Dictated by: Warren Palafox M.D. on 12/17/2019 at 14:45 Approved by: Warren Palafox M.D. on 12/17/2019 at 14:46
== END ==
PROVIDERS: PCP Family Medicine; Referring Provider Family Medicine; Visit Provider Specialist
DX: E04.1 Nontoxic single thyroid nodule (principal)
CPT/HCPCS: 10005

== ENCOUNTER → 2019-12-18 11:02 | Outpatient (CLI) | payer MEDICARE, SELFPAY ==
--- NOTE | 2019-12-18 11:04 | DI.RAD.S_ITS ---
PROCEDURE: FL BARIUM SWALLOW W SPEECH INDICATIONS: dysphagia/pain in area of larynx when swallowing COMPARISON: None. TECHNIQUE: Examination was conducted in conjunction with speech pathology per standard protocol. In the lateral projection, filming was performed of the patient swallowing. AP projection filming may also be performed with patient swallowing. COMPARISON: FINDINGS: Function: The oral preparatory phase appears normal, with proper containment. The subsequent oral propulsive phase, pharyngeal phase, and esophageal phase of swallowing also appear normal with all proffered substances. No laryngotracheal penetration or aspiration. No pathologic vallecular pooling. Morphology: No cricopharyngeal bar is identified. No cervical esophageal webs. No Zenker's diverticulum. No strictures. IMPRESSION: Normal examination. Please also refer to dedicated speech therapy swallowing evaluation report, which will be independently generated. Dictated by: Warren Palafox M.D. on 12/18/2019 at 13:03 Approved by: Warren Palafox M.D. on 12/18/2019 at 13:03
--- NOTE | 2019-12-19 10:24 | ST.SWALLOW ---
Visit Care Team Role Provider Type Tien Coello DO Primary Care Provider Physician Specialty: Family Practice Address: [address] [place] [address], [id number] Email: Errol Douglass MD Attending Provider Physician Referring Provider Specialty: General Surgery Address: [address] [place] [address], [address], [address] Email: [email or web address] Modified Barium Swallow Study [employer] CLAIMS SUPERVISOR Modified Barium Swallow Study Start: 12/18/19 16:51 Freq: Status: Active Protocol: Document 12/18/19 16:52 LNK (Rec: 12/18/19 16:58 LNK [id number]) Modified Barium Swallow Study Total Time Visit Start Time 11:30 Visit Stop Time 12:00 Total Visit Minutes [address] Douglass Reason for Referral pain with swallowing Setting Setting Outpatient Care Patient Information Identification Type Name,Date of Patient History pt presented for a Modified Barium swallow study at the referral of Dr. Douglass. According to the pt, she has been monitored for thyroid nodules by her primary physician, who referred her to Dr. Douglass for additional evaluation of her thyroid. According to the pt she has been having difficulty with swallowing, describing significant pain in the area of her larynx all the time. When she swallows, she described inability to pass the bolus (solids and liquids) . At times she has ejected solids and liquids, without swallowing. She notes that there are times when she cannot breathe, both when swallowing and not swallowing. In the mornings, she describes significant laryngeal pain upon waking followed by radiating pain down her arms to her hands. Subjective Observations pt was seated in the fluoroscopy isauro. Instructions and procedures were described to the pt, who agreed to proceed. Patient Positioning Position View Lateral Imaging Lateral View Textures Administered Trials Presented Thin Liquid via Spoon,Thin Liquid via Cup,Pudding Thick Liquid via Spoon,Regular Textures,Barium Tablet Oral Phase Source: MBSIMP (TM) (C) Bolus Specific Scoring Grid Lip Closure WFL Tongue Control During Bolus Hold WFL Bolus Prep/Mastication WFL Bolus Transport/Lingual Motion WFL A/P Lingual Propulsion Delay No Oral Residue WFL Residue Clearing WFL Nasal Regurgitation No Additional Oral Phase Observations Oral phase was WFL. Dentition adequate for mastication. Pharyngeal Phase Source: MBSIMP (TM) (C) Bolus Specific Scoring Grid Delayed Initiation of Pharyngeal Swallow Yes: spillage of bolus head to the valeculla pre-swallow Number of Seconds Delayed (seconds) <1s Soft Palate Elevation WFL Tongue Base Strength/Range of Motion Minimal Impairment Residue Along the Tongue Base Yes: WFL Clearance of Residue Along Tongue Base WFL Laryngeal Elevation WFL Anterior Hyoid Movement WFL Epiglottic Range of Motion WFL Vallecular Residue Yes Clearance of Vallecular Residue WFL Laryngeal Vestibular Closure WFL Pharyngeal Stripping Wave Mild Impairment Pharyngeal Contraction Mild Impairment Posterior Pharyngeal Wall Residue No Upper Esophageal Sphincter Opening WFL Residue in the Pyriform Sinuses No Esophageal Clearance Upright Position WFL Pharyngoesophageal Backflow Observed No Additional Pharyngeal Phase Observations The pt appeared to present with swallowing difficulty related to excessive tissue near the opening of the laryngeal vestibule and extends inferiorly. This tissue narrows the pharyngeal space, interfering with pharyngeal constriction and pharyngeal flow of the bolus. The pt was observed to need 2 -3 swallows in order to adequately swallow and clear the pharynx. Additionally, the opening of the laryngeal vestibule appeared to be narrowed. No penetration nor aspiration were observed. It was recommended to the pt that she see Dr. Medina at [facility] for further assessment, possibly stroboscopy. Additionally, referral for orthopedic evaluation of the radiating arm pain was recommended. A/P View Clinical Impressions Findings see pharyngeal phase observations above Rehabilitation Potential Good Patient Appropriate for Therapy Yes: Following consultations with ENT/orthopedics Recommendations Diet Liquids Order Thin Diet Order Mechanical Soft Medication Recommendation As Tolerated Aspiration Precautions Recommended Precautions Upright at 90 Degrees, Alternate Liquids/Solids,Small Bites/Sips Treatment Plan Therapy Recommendations Outpatient Speech Therapy Recommended Referrals Other,ENT Consult Additional Recommended Referrals Orthopedics Compensatory Strategies Recommendations Sitting Upright (90 deg), Double Swallow,Alternate Liquids/Solids
== END ==
PROVIDERS: PCP Family Medicine; Referring Provider Specialist; Visit Provider Specialist
DX: R13.10 Dysphagia, unspecified (principal)
CPT/HCPCS: 74230; 92611

== ENCOUNTER → 2020-01-06 13:42 | Outpatient (CLI) | payer MEDICARE, SELFPAY ==
[2020-01-07 12:31] LABS: COVID19 Sendout Not Detected (Not Detect)
== END ==
PROVIDERS: PCP Family Medicine; Visit Provider Physician Assistant
DX: Z11.59 Encounter for screening for other viral diseases (principal)
CPT/HCPCS: 87635

== ENCOUNTER → 2020-05-01 10:27 | Outpatient (CLI) | payer MEDICARE, SELFPAY ==
[2020-05-01 11:07] LABS: Add Manual Diff / Slide Review NO; Basophils Absolute Auto 100 /uL (0-100); Basophils Percent Auto 1.2 % (0-2); Eosinophils Absolute Auto 200 /uL (0-450); Eosinophils Percent Auto 2.7 % (2-4); Hemoglobin 14.4 g/dL (12.0-16.0); Lymphocytes Absolute Auto 1700 /uL (1100-4500); Mean Corpuscular HGB Conc 33.5 % (30-36); Mean Corpuscular Volume 89.7 fL (80-100); Monocytes Absolute Auto 500 /uL (0-900); Neutrophils Absolute Auto 5000 /uL (1500-7000); Neutrophils Percent Auto 66.1 % (50-75); Platelet Count 355 X10^3/uL (150-400); Red Cell Distribution Width 13.6 % (11.6-14.8); White Blood Cell Count 7.5 X10^3/uL (4.5-11.0)
[2020-05-01 11:14] LABS: Alanine Aminotransferase 15 IU/L (<35); Albumin 4.4 g/dL (3.5-5.0); Albumin Globulin Ratio 1.5 (1.0-2.8); Alkaline Phosphatase 80 U/L (38-126); Aspartate Aminotransferase 19 IU/L (14-36); BUN Creatinine Ratio 24.6 (6-22); Bilirubin Total 0.5 mg/dL (0.2-1.3); Blood Urea Nitrogen 16 mg/dL (7-17); Calcium 9.8 mg/dL (8.4-10.2); Carbon Dioxide 28 mmol/L (22-32); Chloride 104 mmol/L (98-107); Cholesterol 219 mg/dL (140-199); Estimated Glomerular Filt Rate > 60.0 mL/min (>60); Glucose 179 mg/dL (80-110); HDL Cholesterol 65 mg/dL (40-60); HEMOLYSIS < 15 (0-50); LDL Cholesterol Calculated 120 mg/dL (<100); Potassium 4.8 mmol/L (3.4-5.1); Sodium 136 mmol/L (137-145); Total Protein 7.4 g/dL (6.3-8.2); Triglycerides 169 mg/dL (35-150)
[2020-05-01 11:15] LABS: Hemoglobin A1C% w Est Avg Glu 7.3 % (4.0-6.0)
[2020-05-01 11:49] LABS: Free T3, Triiodothyronine Free 3.09 pg/mL (2.77-5.27); Free T4, Direct Thyroxine 1.18 ng/dL (0.78-2.19)
[2020-05-01 12:03] LABS: Thyroid Stimulating Hormone 1.03 uIU/mL (0.47-4.68)
== END ==
PROVIDERS: PCP Family Medicine; Referring Provider Family Medicine; Visit Provider Family Medicine
DX: E03.9 Hypothyroidism, unspecified (principal); E11.9 Type 2 diabetes mellitus without complications; E78.5 Hyperlipidemia, unspecified; I10 Essential (primary) hypertension
CPT/HCPCS: 36415; 80053; 80061; 83036; 84439; 84443; 84481; 85025

== ENCOUNTER → 2020-05-15 12:48 | Outpatient (CLI) | payer MEDICARE, SELFPAY ==
[2020-05-15] MEDS: COVID-19 VACC #1, MRNA(MOD) 100 MCG/0.5 ML VIAL IM (12:52)
== END ==
PROVIDERS: PCP Family Medicine; Visit Provider Internal Medicine
DX: Z23 Encounter for immunization (principal)
CPT/HCPCS: 0011A; 91301

== ENCOUNTER → 2020-06-12 15:28 | Outpatient (CLI) | payer MEDICARE, SELFPAY ==
[2020-06-12] MEDS: COVID-19 VACC #2, MRNA(MOD) 100 MCG/0.5 ML VIAL IM (15:32)
== END ==
PROVIDERS: PCP Family Medicine; Visit Provider Internal Medicine
DX: Z23 Encounter for immunization (principal)
CPT/HCPCS: 0012A; 91301

== ENCOUNTER → 2020-10-13 10:13 | Outpatient (CLI) | payer MEDICARE, SELFPAY ==
[2020-10-13 10:51] LABS: Add Manual Diff / Slide Review NO; Basophils Absolute Auto 100 /uL (0-100); Eosinophils Absolute Auto 200 /uL (0-450); Eosinophils Percent Auto 3.1 % (2-4); Hematocrit 40.4 % (36-46); Hemoglobin 13.3 g/dL (12.0-16.0); Lymphocytes Absolute Auto 1800 /uL (1100-4500); Lymphocytes Percent Auto 24.2 % (25-40); Mean Corpuscular Hemoglobin 29.7 PG (26-34); Mean Corpuscular Volume 89.9 fL (80-100); Monocytes Absolute Auto 500 /uL (0-900); Monocytes Percent Auto 6.9 % (3-14); Neutrophils Absolute Auto 4800 /uL (1500-7000); Neutrophils Percent Auto 64.8 % (50-75); Platelet Count 301 X10^3/uL (150-400); Red Blood Cell Count 4.49 X10^6/uL (4.0-5.2); Red Cell Distribution Width 13.2 % (11.6-14.8); White Blood Cell Count 7.4 X10^3/uL (4.5-11.0)
[2020-10-13 11:00] LABS: Hemoglobin A1C% w Est Avg Glu 7.7 % (4.0-6.0)
[2020-10-13 11:12] LABS: Alanine Aminotransferase 15 IU/L (<35); Albumin 3.9 g/dL (3.5-5.0); Albumin Globulin Ratio 1.3 (1.0-2.8); Alkaline Phosphatase 73 U/L (38-126); Aspartate Aminotransferase 18 IU/L (14-36); BUN Creatinine Ratio 26.6 (6-22); Bilirubin Total 0.5 mg/dL (0.2-1.3); Blood Urea Nitrogen 17 mg/dL (7-17); Calcium 9.5 mg/dL (8.4-10.2); Carbon Dioxide 23 mmol/L (22-32); Chloride 108 mmol/L (98-107); Cholesterol 158 mg/dL (140-199); Estimated Glomerular Filt Rate > 60.0 mL/min (>60); Globulin 3.1 g/dL (1.7-4.1); Glucose 188 mg/dL (80-110); HDL Cholesterol 58 mg/dL (40-60); HEMOLYSIS < 15 (0-50); LDL Cholesterol Calculated 79 mg/dL (<100); Potassium 4.6 mmol/L (3.4-5.1); Sodium 138 mmol/L (137-145); Triglycerides 106 mg/dL (35-150)
== END ==
PROVIDERS: PCP Family Medicine; Referring Provider Family Medicine; Visit Provider Family Medicine
DX: E66.01 Morbid (severe) obesity due to excess calories (principal); I10 Essential (primary) hypertension; E78.5 Hyperlipidemia, unspecified
CPT/HCPCS: 36415; 80053; 80061; 83036; 85025

== ENCOUNTER → 2021-02-05 10:34 | Outpatient (CLI) | payer MEDICARE, SELFPAY ==
[2021-02-05 12:36] LABS: Hemoglobin A1C% w Est Avg Glu 7.4 % (4.0-6.0)
== END ==
PROVIDERS: PCP Family Medicine; Referring Provider Family Medicine; Visit Provider Family Medicine
DX: E11.9 Type 2 diabetes mellitus without complications (principal); F41.8 Other specified anxiety disorders; Z71.3 Dietary counseling and surveillance
CPT/HCPCS: 36415; 83036

== ENCOUNTER → 2021-04-14 10:00 | Outpatient (CLI) | payer MEDICARE, SELFPAY ==
[2021-04-14 12:06] LABS: Add Manual Diff / Slide Review NO; Basophils Absolute Auto 100 /uL (0-100); Eosinophils Absolute Auto 200 /uL (0-450); Eosinophils Percent Auto 2.4 % (2-4); Hematocrit 42.6 % (36-46); Hemoglobin 14.2 g/dL (12.0-16.0); Lymphocytes Absolute Auto 2300 /uL (1100-4500); Lymphocytes Percent Auto 25.8 % (25-40); Mean Corpuscular HGB Conc 33.3 % (30-36); Mean Corpuscular Hemoglobin 29.9 PG (26-34); Mean Corpuscular Volume 89.9 fL (80-100); Monocytes Absolute Auto 700 /uL (0-900); Monocytes Percent Auto 7.7 % (3-14); Neutrophils Absolute Auto 5600 /uL (1500-7000); Neutrophils Percent Auto 63.1 % (50-75); Platelet Count 393 X10^3/uL (150-400); Red Blood Cell Count 4.74 X10^6/uL (4.0-5.2); Red Cell Distribution Width 13.2 % (11.6-14.8); White Blood Cell Count 8.9 X10^3/uL (4.5-11.0)
[2021-04-14 12:12] LABS: Hemoglobin A1C% w Est Avg Glu 8.5 % (4.0-6.0)
[2021-04-14 12:33] LABS: Free T3, Triiodothyronine Free 3.56 pg/mL (2.77-5.27)
[2021-04-14 12:44] LABS: Alanine Aminotransferase 17 IU/L (<35); Albumin 4.4 g/dL (3.5-5.0); Albumin Globulin Ratio 1.5 (1.0-2.8); Alkaline Phosphatase 96 U/L (38-126); Aspartate Aminotransferase 19 IU/L (14-36); BUN Creatinine Ratio 19.2 (6-22); Bilirubin Total 0.6 mg/dL (0.2-1.3); Blood Urea Nitrogen 15 mg/dL (7-17); Calcium 10.5 mg/dL (8.4-10.2); Carbon Dioxide 28 mmol/L (22-32); Chloride 101 mmol/L (98-107); Cholesterol 190 mg/dL (140-199); Estimated Glomerular Filt Rate > 60.0 mL/min (>60); Globulin 2.9 g/dL (1.7-4.1); Glucose 223 mg/dL (80-110); HDL Cholesterol 83 mg/dL (40-60); HEMOLYSIS < 15 (0-50); LDL Cholesterol Calculated 73 mg/dL (<100); Potassium 5.1 mmol/L (3.4-5.1); Sodium 136 mmol/L (137-145); Total Protein 7.3 g/dL (6.3-8.2); Triglycerides 170 mg/dL (35-150)
[2021-04-14 12:47] LABS: Thyroid Stimulating Hormone 1.55 uIU/mL (0.47-4.68)
== END ==
PROVIDERS: PCP Family Medicine; Referring Provider Family Medicine; Visit Provider Family Medicine
DX: E03.9 Hypothyroidism, unspecified (principal); E11.9 Type 2 diabetes mellitus without complications; E04.1 Nontoxic single thyroid nodule; I10 Essential (primary) hypertension; E78.5 Hyperlipidemia, unspecified
CPT/HCPCS: 36415; 80053; 80061; 83036; 84439; 84443; 84481; 85025

== ENCOUNTER → 2021-09-16 10:26 | Outpatient (CLI) | payer MEDICARE, SELFPAY ==
[2021-09-16 12:33] LABS: Hemoglobin A1C% w Est Avg Glu 8.5 % (4.0-6.0)
[2021-09-16 12:39] LABS: Alanine Aminotransferase 18 IU/L (<35); Albumin Globulin Ratio 1.5 (1.0-2.8); Alkaline Phosphatase 84 U/L (38-126); Aspartate Aminotransferase 20 IU/L (14-36); BUN Creatinine Ratio 23.5 (6-22); Bilirubin Total 0.5 mg/dL (0.2-1.3); Blood Urea Nitrogen 16 mg/dL (7-17); Calcium 9.3 mg/dL (8.4-10.2); Carbon Dioxide 26 mmol/L (22-32); Chloride 105 mmol/L (98-107); Estimated Glomerular Filt Rate > 60 mL/min (>60); Globulin 2.6 g/dL (1.7-4.1); Glucose 186 mg/dL (80-110); HEMOLYSIS < 15 (0-50); Potassium 4.8 mmol/L (3.4-5.1); Sodium 137 mmol/L (137-145); Total Protein 6.6 g/dL (6.3-8.2)
== END ==
PROVIDERS: PCP Family Medicine; Referring Provider Family Medicine; Visit Provider Family Medicine
DX: E11.9 Type 2 diabetes mellitus without complications (principal); I10 Essential (primary) hypertension
CPT/HCPCS: 36415; 80053; 83036

== ENCOUNTER → 2022-02-22 11:51 | Outpatient (CLI) | payer MEDICARE, SELFPAY ==
[2022-02-22 15:19] LABS: Hemoglobin A1C% w Est Avg Glu 8.2 % (4.0-6.0)
== END ==
PROVIDERS: PCP Family Medicine; Referring Provider Family Medicine; Visit Provider Family Medicine
DX: E11.9 Type 2 diabetes mellitus without complications (principal)
CPT/HCPCS: 36415; 83036

== ENCOUNTER → 2022-06-30 10:07 | Outpatient (CLI) | payer MEDICARE, SELFPAY ==
[2022-06-30 10:49] LABS: Add Manual Diff / Slide Review NO; Basophils Absolute Auto 100 /uL (0-100); Basophils Percent Auto 0.9 % (0-2); Eosinophils Absolute Auto 200 /uL (0-450); Eosinophils Percent Auto 2.4 % (2-4); Hematocrit 43.9 % (36-46); Hemoglobin 15.1 g/dL (12.0-16.0); Lymphocytes Absolute Auto 1800 /uL (1100-4500); Lymphocytes Percent Auto 21.7 % (25-40); Mean Corpuscular HGB Conc 34.3 % (30-36); Mean Corpuscular Hemoglobin 30.3 PG (26-34); Mean Corpuscular Volume 88.3 fL (80-100); Monocytes Absolute Auto 600 /uL (0-900); Monocytes Percent Auto 6.9 % (3-14); Neutrophils Absolute Auto 5500 /uL (1500-7000); Neutrophils Percent Auto 68.1 % (50-75); Platelet Count 308 X10^3/uL (150-400); Red Blood Cell Count 4.98 X10^6/uL (4.0-5.2); Red Cell Distribution Width 13.5 % (11.6-14.8); White Blood Cell Count 8.1 X10^3/uL (4.5-11.0)
[2022-06-30 10:56] LABS: Hemoglobin A1C% w Est Avg Glu 7.2 % (4.0-6.0)
[2022-06-30 11:08] LABS: Alanine Aminotransferase 17 IU/L (<35); Albumin 4.2 g/dL (3.5-5.0); Albumin Globulin Ratio 1.5 (1.0-2.8); Alkaline Phosphatase 86 U/L (38-126); Aspartate Aminotransferase 19 IU/L (14-36); Bilirubin Total 0.6 mg/dL (0.2-1.3); Blood Urea Nitrogen 16 mg/dL (7-17); Calcium 9.4 mg/dL (8.4-10.2); Carbon Dioxide 24 mmol/L (22-32); Chloride 103 mmol/L (98-107); Cholesterol 169 mg/dL (140-199); Estimated Glomerular Filt Rate > 60 mL/min (>60); Globulin 2.8 g/dL (1.7-4.1); Glucose 164 mg/dL (80-110); HDL Cholesterol 65 mg/dL (40-60); HEMOLYSIS < 15 (0-50); LDL Cholesterol Calculated 75 mg/dL (<100); Potassium 4.6 mmol/L (3.4-5.1); Sodium 138 mmol/L (137-145); Triglycerides 145 mg/dL (35-150)
[2022-06-30 11:17] LABS: Creatinine Urine Random 84.4 mg/dL
[2022-06-30 11:21] LABS: Microalbumi Creatinin Ratio Ur 10.6 ug/mg CR (<30); Microalbumin Urine Random 0.9 mg/dL (0-1.6)
== END ==
PROVIDERS: PCP Family Medicine; Referring Provider Family Medicine; Visit Provider Family Medicine
DX: E03.9 Hypothyroidism, unspecified (principal); E11.9 Type 2 diabetes mellitus without complications; E04.1 Nontoxic single thyroid nodule
CPT/HCPCS: 36415; 80053; 80061; 82043; 82570; 83036; 85025

== ENCOUNTER → 2022-11-22 09:05 | Outpatient (CLI) | payer MEDICARE, SELFPAY ==
[2022-11-23 03:36] LABS: Labcorp Hemoglobin (Hb) A1c 7.7 % (4.8-5.6)
== END ==
PROVIDERS: PCP Family Medicine; Referring Provider Family Medicine; Visit Provider Family Medicine
DX: E11.9 Type 2 diabetes mellitus without complications (principal)
CPT/HCPCS: 36415; 83036

== ENCOUNTER → 2023-02-27 11:02 | Outpatient (CLI) | payer MEDICARE, SELFPAY ==
[2023-02-27 12:22] LABS: Appearance Urine UA CLEAR; Bilirubin Urine UA NEGATIVE (NEGATIVE); Color Urine UA YELLOW; Glucose Urine UA 3+ g/dL (Negative); Ketones Urine UA TRACE (NEGATIVE); Leukocyte Esterase Urine UA NEGATIVE (NEGATIVE); Nitrite Urine UA NEGATIVE (Negative); Occult Blood Urine UA NEGATIVE (Negative); Protein Urine UA NEGATIVE (Negative); Specific Gravity Urine UA 1.015 (1.000-1.035); Urobilinogen Urine UA 0.2 E.U./dL (0.2)
[2023-02-27 12:28] LABS: Bacteria Urine None Seen; Culture Indicated Urine Cult Not Indicated; RBC Urine None Seen (0-5/HPF); Squamous Epithelial Cell Urine None Seen (0-5/HPF); WBC Urine None Seen (0-5/HPF)
[2023-02-27 12:32] LABS: Hemoglobin A1C% w Est Avg Glu 7.8 % (4.0-6.0)
[2023-02-27 12:36] LABS: Alanine Aminotransferase 21 IU/L (<35); Albumin 4.2 g/dL (3.5-5.0); Albumin Globulin Ratio 1.4 (1.0-2.8); Alkaline Phosphatase 73 U/L (38-126); Aspartate Aminotransferase 18 IU/L (14-36); Bilirubin Total 0.6 mg/dL (0.2-1.3); Blood Urea Nitrogen 18 mg/dL (7-17); Calcium 9.7 mg/dL (8.4-10.2); Carbon Dioxide 23 mmol/L (22-32); Chloride 106 mmol/L (98-107); Estimated Glomerular Filt Rate > 60 mL/min (>60); Globulin 3.1 g/dL (1.7-4.1); Glucose 139 mg/dL (80-110); HEMOLYSIS 26 (0-50); Potassium 4.5 mmol/L (3.4-5.1); Sodium 137 mmol/L (137-145); Total Protein 7.3 g/dL (6.3-8.2)
[2023-02-27 12:45] LABS: Free T3, Triiodothyronine Free 4.25 pg/mL (2.77-5.27)
[2023-02-27 12:59] LABS: Thyroid Stimulating Hormone 2.29 uIU/mL (0.47-4.68)
== END ==
PROVIDERS: PCP Family Medicine; Referring Provider Family Medicine; Visit Provider Family Medicine
DX: E11.9 Type 2 diabetes mellitus without complications (principal); K52.9 Noninfective gastroenteritis and colitis, unspecified; F41.8 Other specified anxiety disorders; E03.9 Hypothyroidism, unspecified; I10 Essential (primary) hypertension; E66.01 Morbid (severe) obesity due to excess calories; R32 Unspecified urinary incontinence
CPT/HCPCS: 36415; 80053; 81001; 83036; 84439; 84443; 84481

== ENCOUNTER → 2023-03-11 11:03 | Outpatient (CLI) | payer MEDICARE, SELFPAY ==
--- NOTE | 2023-03-11 | DI.MG.S_ITS ---
BILATERAL DIGITAL SCREENING MAMMOGRAM 3D/2D WITH CAD: 03/11/2023 CLINICAL: Routine screening. Family history of breast cancer. Baseline exam. Comparison is made to exams dated: 04/12/2010 mammogram, 06/30/2009 mammogram, 03/17/2009 mammogram, and 03/06/2009 mammogram - [facility]. There are scattered areas of fibroglandular density in both breasts (category b / 25%-50% glandular tissue). Current study was also evaluated with a Computer Aided Detection (CAD) system. There is a possible irregular focal asymmetry in the right breast at 7 o'clock middle depth. There is architectural distortion associated with the focal asymmetry. No other significant masses, calcifications, or other findings are seen in either breast. IMPRESSION: INCOMPLETE: NEEDS ADDITIONAL IMAGING EVALUATION The possible irregular focal asymmetry in the right breast is indeterminate. Additional views with possible ultrasound are recommended. Based on the Tyrer Cuzick model (a risk assessment model) the patient's lifetime risk is 10.0% and her 10 year risk is 4.9%. According to the ACR, ACS, and NCCN guidelines, an annual breast MRI exam along with mammogram is recommended if the patient's lifetime risk is 20% or greater. This exam was interpreted at Station ID: [id number]. NOTE: For mammograms, a report in lay terms will be sent to the patient. Approximately 15% of breast malignancies will not be visualized mammographically. In the management of a palpable breast mass, a negative mammogram must not discourage biopsy of a clinically suspicious lesion. Electronically Signed By: Emanuel mcconnell/coy:03/13/2023 09:56:13 letter sent: Additional Imaging Needed ACR BI-RADS Category 0: Incomplete 3340F
== END ==
PROVIDERS: PCP Family Medicine; Referring Provider Family Medicine; Visit Provider Family Medicine
DX: Z12.31 Encounter for screening mammogram for malignant neoplasm of breast (principal); Z80.3 Family history of malignant neoplasm of breast; N64.89 Other specified disorders of breast
CPT/HCPCS: 77063; 77067

== ENCOUNTER → 2023-03-30 10:14 | Outpatient (CLI) | payer MEDICARE, SELFPAY ==
--- NOTE | 2023-03-30 10:16 | DI.US.S_ITS ---
ULTRASOUND OF RIGHT BREAST: 03/30/2023 CLINICAL: Patient returns today to evaluate a focal asymmetry in the right breast. Comparison is made to exams dated: 03/30/2023 mammogram, 04/12/2010 mammogram, 03/11/2023 mammogram, 06/30/2009 mammogram, 06/30/2009, and 03/17/2009 mammogram - [facility]. Color flow and real-time ultrasound of the right breast were performed. Gabriel scale images of the real-time examination were reviewed. There is a benign cluster of dilated ducts in the right breast central to the nipple in the retroareolar region. This cluster of dilated ducts displays internal echoes. This correlates as an incidental finding. No significant abnormalities were seen sonographically in the right breast. IMPRESSION: SUSPICIOUS OF MALIGNANCY The cluster of dilated ducts in the right breast is benign, incidental. No sonographic correlate to mammographic irregular spiculated mass. Stereotatic biopsy recommended. This exam was interpreted at Station ID: [id number]. Electronically Signed By: Ramon Perkins M.D. lc/:03/30/2023 11:39:49 letter sent: Biopsy Required Ultrasound BI-RADS: 4 Suspicious for malignancy
--- NOTE | 2023-03-30 10:16 | DI.MG.S_ITS ---
UNILATERAL RIGHT DIGITAL DIAGNOSTIC MAMMOGRAM 3D/2D WITH ADDITIONAL VIEWS: 03/30/2023 CLINICAL: Additional evaluation requested from prior study. Comparison is made to exams dated: 03/11/2023 mammogram, 04/12/2010 mammogram, 06/30/2009 mammogram, 03/17/2009 mammogram, and 03/06/2009 mammogram - [facility]. There are scattered areas of fibroglandular density in the right breast (category b / 25%-50% glandular tissue). There is a 0.5 cm irregular mass with a spiculated margin in the right breast at 7 o'clock middle depth. This is seen in additional views. No other significant masses or calcifications are seen in the breast. IMPRESSION: INCOMPLETE: NEEDS ADDITIONAL IMAGING EVALUATION The 0.5 cm irregular mass in the right breast is indeterminate. An ultrasound is recommended. Based on the Tyrer Cuzick model (a risk assessment model) the patient's lifetime risk is 10.0% and her 10 year risk is 4.9%. According to the ACR, ACS, and NCCN guidelines, an annual breast MRI exam along with mammogram is recommended if the patient's lifetime risk is 20% or greater. This exam was interpreted at Station ID: [id number]. NOTE: For mammograms, a report in lay terms will be sent to the patient. Approximately 15% of breast malignancies will not be visualized mammographically. In the management of a palpable breast mass, a negative mammogram must not discourage biopsy of a clinically suspicious lesion. Electronically Signed By: Ramon Perkins M.D. lc/:03/30/2023 11:36:52 ACR BI-RADS Category 0: Incomplete 3340F
== END ==
PROVIDERS: PCP Family Medicine; Referring Provider Family Medicine; Visit Provider Family Medicine
DX: R92.8 Other abnormal and inconclusive findings on diagnostic imaging of breast (principal); N63.13 Unspecified lump in the right breast, lower outer quadrant; N60.41 Mammary duct ectasia of right breast
CPT/HCPCS: 76642; 77065; G0279

== ENCOUNTER → 2023-06-28 09:08 | Outpatient (CLI) | payer OTHER, SELFPAY ==
[2023-06-28 09:48] LABS: Add Manual Diff / Slide Review NO; Basophils Absolute Auto 100 /uL (0-100); Eosinophils Absolute Auto 300 /uL (0-450); Eosinophils Percent Auto 3.5 % (2-4); Hematocrit 40.8 % (36-46); Hemoglobin 13.5 g/dL (12.0-16.0); Lymphocytes Absolute Auto 2100 /uL (1100-4500); Lymphocytes Percent Auto 23.6 % (25-40); Mean Corpuscular Hemoglobin 29.7 PG (26-34); Mean Corpuscular Volume 89.8 fL (80-100); Monocytes Absolute Auto 700 /uL (0-900); Monocytes Percent Auto 7.6 % (3-14); Neutrophils Absolute Auto 5700 /uL (1500-7000); Neutrophils Percent Auto 64.3 % (50-75); Platelet Count 269 X10^3/uL (150-400); Red Blood Cell Count 4.54 X10^6/uL (4.0-5.2); Red Cell Distribution Width 13.5 % (11.6-14.8); White Blood Cell Count 8.9 X10^3/uL (4.5-11.0)
[2023-06-28 10:00] LABS: Hemoglobin A1C% w Est Avg Glu 7.3 % (4.0-6.0)
[2023-06-28 10:15] LABS: Alanine Aminotransferase 17 IU/L (<35); Albumin 3.7 g/dL (3.5-5.0); Albumin Globulin Ratio 1.3 (1.0-2.8); Alkaline Phosphatase 84 U/L (38-126); Aspartate Aminotransferase 19 IU/L (14-36); BUN Creatinine Ratio 21.2 (6-22); Bilirubin Total 0.6 mg/dL (0.2-1.3); Blood Urea Nitrogen 14 mg/dL (7-17); Calcium 8.9 mg/dL (8.4-10.2); Carbon Dioxide 24 mmol/L (22-32); Chloride 109 mmol/L (98-107); Cholesterol 198 mg/dL (140-199); Estimated Glomerular Filt Rate > 60 mL/min (>60); Globulin 2.8 g/dL (1.7-4.1); Glucose 163 mg/dL (80-110); HDL Cholesterol 63 mg/dL (40-60); HEMOLYSIS < 15 (0-50); LDL Cholesterol Calculated 88 mg/dL (<100); Potassium 4.5 mmol/L (3.4-5.1); Sodium 137 mmol/L (137-145); Total Protein 6.5 g/dL (6.3-8.2); Triglycerides 237 mg/dL (35-150)
[2023-06-28 12:11] LABS: Creatinine Urine Random 67.1 mg/dL
[2023-06-28 12:17] LABS: Microalbumi Creatinin Ratio Ur 10.4 ug/mg CR (<30); Microalbumin Urine Random 0.7 mg/dL (0-1.6)
== END ==
PROVIDERS: PCP Family Medicine; Referring Provider Family Medicine; Visit Provider Family Medicine
DX: I10 Essential (primary) hypertension (principal); E11.9 Type 2 diabetes mellitus without complications; E78.5 Hyperlipidemia, unspecified
CPT/HCPCS: 36415; 80053; 80061; 82043; 82570; 83036; 85025

== ENCOUNTER 2023-08-24 13:52 | Day surgery (SDC) | payer MEDICARE, SELFPAY ==
--- NOTE | 2023-08-24 | PATH_ITS ---
[facility] Accession Number: [id number] No. of containers..00 Tissue . 01 Material submitted: . PART A: duodenum - DUODENUM PART B: gastrointestinal site - ANTRUM PART C: esophagus, E-G Junction - GE JUNCTION PART D: colon - ASCENDING COLON POLYPS PART E: small bowel - TERMINAL ILEUM PART F: colon - RIGHT COLON PART G: colon - TRANSVERSE COLON PART H: colon - LEFT COLON PART I: colon - SIGMOID COLON POLYPS PART J: rectum - RECTAL POLYP . 01 Diagnosis: A. DUODENUM, BIOPSY: Duodenal mucosa with no diagnostic abnormality. Negative for active inflammation, features of sprue, dysplasia, or malignancy. . B. STOMACH, ANTRUM, BIOPSY: Antral mucosa with mild chronic gastritis. Negative for Helicobacter by immunohistochemistry. Negative for intestinal metaplasia. Negative for dysplasia and malignancy. . C. GASTROESOPHAGEAL JUNCTION, BIOPSY: Squamocolumnar junctional mucosa with no diagnostic abnormality. Negative for intestinal metaplasia. Negative for dysplasia and malignancy. . D. ASCENDING COLON, POLYPS: Tubular adenoma in four of five fragments. . E. TERMINAL ILEUM, BIOPSY: Small bowel mucosa with no diagnostic abnormality. Negative for active inflammation, dysplasia, and malignancy. . F-H. RIGHT COLON, TRANSVERSE COLON, LEFT COLON, BIOPSY: Colonic mucosa with no diagnostic abnormality. Negative for active, chronic, and microscopic colitis. Negative for dysplasia and malignancy. . I. SIGMOID COLON, POLYPS: Fragments of tubular adenoma and hyperplastic polyp. . J. RECTUM, POLYP: Hyperplastic polyp. [facility] 08/28/2023 1508 Local . 01 Electronically signed: . Paty Cabello MD, Pathologist NPI- [id number] . 01 Gross description: . A. Received in formalin, labeled with the patient's name, , and duodenum biopsy, consists of two fragments of pink-goodman soft tissue measuring 0.2 and 0.3 cm in greatest dimension. The tissue is entirely submitted in cassette A1. B. Received in formalin, labeled with the patient's name, , and antrum biopsy, consists of four fragments of pink-goodman soft tissue ranging from 0.2 to 0.4 cm in greatest dimension. The tissue is entirely submitted in cassette B1. C. Received in formalin, labeled with the patient's name, , and GE junction biopsy, consists of two fragments of pink-goodman soft tissue, both measuring 0.3 cm in greatest dimension. The tissue is entirely submitted in cassette C1. D. Received in formalin, labeled with the patient's name, , and ascending colon polyps, consist of four fragments of pink-goodman soft tissue ranging from 0.5 x 0.2 x 0.1 cm to 0.8 x 0.5 x 0.1 cm. The two largest fragments are inked blue, black, and are each bisected. The tissue is entirely submitted in cassette D1. E. Received in formalin, labeled with the patient's name, , and terminal ileum biopsies, consist of two fragments of pink-goodman soft tissue measuring 0.2 cm in greatest dimension. The tissue is entirely submitted in cassette E1. F. Received in formalin, labeled with the patient's name, , and right colon biopsy, consists of two fragments of goodman soft tissue measuring 0.2 and 0.3 cm in greatest dimension. The tissue is entirely submitted in cassette F1. G. Received in formalin, labeled with the patient's name, , and transverse colon biopsy, consists of two fragment of two fragments of pink-goomdan soft tissue measuring 0.2 and 0.3 cm in greatest dimension. The tissue is entirely submitted in cassette G1. H. Received in formalin, labeled with the patient's name, , and left colon biopsy, consists of two fragments of pink-goodman soft tissue, both measuring 0.2 cm in greatest dimension. The tissue is entirely submitted in cassette H1. I. Received in formalin, labeled with the patient's name, , and sigmoid colon polyps consists of two fragments of pink-goodman soft tissue measuring 0.6 x 0.3 x 0.3 cm and 0.9 x 0.5 x 0.2 cm. The larger fragment is inked blue and bisected. The tissue is entirely submitted in cassette I1. J. Received in formalin, labeled with the patient's name, , and rectal polyp, consists of a single fragment of pink-goodman soft tissue measuring 0.4 cm in greatest dimension. The tissue is entirely submitted in cassette J1. ([id number]) /[facility] 08/25/2023 1839 Local . 01 Microscopic: . B. An immunohistochemical stain was performed to evaluate for Helicobacter organisms and is negative. The control stain showed appropriate reactivity. . C. An AB/PAS stain is performed to evaluate for intestinal metaplasia and is negative. The control stain showed appropriate reactivity. . * This test was developed and its performance characteristics determined by [facility]. It has not been cleared or approved by the U.S. Food and Drug Administration. The FDA has determined that such clearance or approval is not necessary. This test is used for clinical purposes. It should not be regarded as investigational or for research. . 01 Pathologist provided ICD-10: D12.2, D12.5, R13.10 . 01 CPT . 460312, 652370, 682366, 560088, 406652, 712312, 209585, 916122, 048766, 215180, S52824, 761100 Specimen Comment: A courtesy copy of this report has been sent to [phone] Performed at: 01 [facility] [address] [place] [address], [place], [place] [id number] MD Henry Finney MD Phone: [phone]
[2023-08-24 14:15] VITALS: BP 152/86; PULSE 102; RESP 20; TEMP 36.1; O2SAT 95
--- NOTE | 2023-08-24 14:45 | PM.OP.EC ---
Operative Date/Time/Diagnoses Date of procedure: 08/24/23 Time of procedure: 14:45 Pre-op diagnosis: Dysphagia and diarrhea Post-op diagnosis: same Procedure & Clinicians Study performed: EGD and colonoscopy Same procedure as scheduled: Yes Surgeon: Naman Ennis Procedure Notes Procedure in detail: Surgeon: Naman Ennis MD Anesthesia: Vick García MD Procedure in detail: A timeout was performed. A bite blocked was placed and monitors were attached to the patient. The patient was positioned in the left lateral decubitus position. Sedation was administered. Once the patient was sedated the endoscope was inserted through the bite block and passed through the esophagus and stomach and into the duodenum. The duodenal mucosa appeared normal. Random biopsies were taken with cold forceps. The duodenal bulb appeared normal. We then withdrew the scope into the stomach. There was some mild antritis and random biopsies were taken from the antrum with cold forceps. The endoscope was retroflexed and a very small hiatal hernia was noted. The endoscope was straightned and withdrawn into the esophagus. There was some salmon-colored islands just proximal to the GE junction and biopsies were taken with cold forceps. The rest of the esophagus appeared normal. EGD findings: Mild antritis and some salmon-colored islands of mucosa proximal to the GE junction Next we repositioned the patient for a colonoscopy. A digital rectal exam was performed and was normal. The colonoscope was inserted and advanced to the cecum. The appendiceal orifice was identified and photographed. The scope was slowly withdrawn over greater than 6 minutes. The terminal ileum was intubated and random biopsies were taken with cold forceps. There were 2 polyps in the ascending colon less than 1 cm and removed with cold snare. Random biopsies were taken from the right colon, transverse colon and descending colon with forceps. There were 2 subcentimeter polyps in the sigmoid colon removed with a cold snare. There was 1 subcentimeter polyp in the rectum removed with a cold snare. The scope was retroflexed in the rectum and internal hemorrhoids were noted. Colonoscopy findings: 2 subcentimeter ascending colon polyps, 2 subcentimeter sigmoid colon polyps and 1 subcentimeter rectal Total procedural EBL: 5 mL Scope withdrawal time: 19 minutes Sedation minutes: 39 minutes Post-procedure Disposition: PACU
--- NOTE | 2023-08-24 14:46 | PM.HP.1 ---
History of Present Illness History of Present Illness Date Patient Seen: 08/24/23 Time Patient Seen: 14:46 Chief complaint: EGD/Colonoscopy Narrative: Isa is a 68-year-old woman with dysphagia and chronic diarrhea. See the office note from July for details. ON LICENSE OF [facility] Medical History Family history of breast cancer in female Incisional hernia Cholecystitis, acute with cholelithiasis Gallstones and inflammation of gallbladder without obstruction Grief Body posture problem Chronic right shoulder pain Fatigue Weight loss counseling, encounter for Chronic diarrhea of unknown origin Depression with anxiety Grief reaction with prolonged bereavement Difficulty breathing Dysphagia Cold thyroid nodule Thyroid nodule Pelvic somatic dysfunction Segmental and somatic dysfunction of sacral region Segmental and somatic dysfunction of lumbar region Low back pain Melanoma Hyperhidrosis Depression Osteoarthritis Neuropathy Hypertension Hypothyroidism Hyperlipemia Diabetes Fibromyalgia Diabetes Depression Fibromyalgia Type 2 diabetes mellitus with hyperglycemia, with long-term current use of insulin Surgical History S/P cholecystectomy Hx of foot surgery (Unknown) Hx of knee surgery (Unknown) Hx of hysterectomy (Unknown) Family History Father Cancer Diabetes mellitus Hypertension Mother Cancer Social History marital status: Smoking Status: Former smoker alcohol intake: never substance use type: does not use Type(s) of exercise: walking frequency: 3-4 times per week duration: 15-30 minutes/day Meds Home Medications and Allergies Home Medications Medication Instructions Recorded Confirmed Type calcium carbonate [Maalox Antacid] 4 tab PO BID 02/19/20 07/24/23 History omeprazole 20 mg capsule,delayed 20 mg PO BID 02/19/20 08/24/23 History release Disabled Parking Permit #1 ea 07/16/20 07/24/23 Rx levothyroxine 50 mcg tablet See Rx Instructions .Route 09/13/22 08/24/23 Rx .COMPLEX #90 tabs blood sugar diagnostic (Blood #100 ea 01/16/23 07/24/23 Rx Glucose Test strips) blood-glucose meter #1 ea 01/16/23 07/24/23 Rx lancets 33 gauge #100 ea 01/16/23 07/24/23 Rx lisinopril 20 mg tablet 20 mg PO QPM #90 tabs 01/20/23 08/24/23 Rx simvastatin 20 mg tablet 20 mg PO ONCE PM #90 tabs 06/07/23 08/24/23 Rx oxybutynin chloride 5 mg tablet 5 mg PO 3XD #270 tabs 06/22/23 08/24/23 Rx peg 3350-electrolytes 236 240 ml PO Q10M #4,000 mL 07/28/23 Rx gram-22.74 gram-6.74 gram-5.86 gram solution (Golytely) lorazepam 2 mg tablet See Rx Instructions .Route 07/31/23 08/24/23 Rx .COMPLEX #60 tabs metformin 500 mg tablet 1,000 mg (2 x 500 mg) PO BID #360 08/04/23 08/24/23 Rx tabs empagliflozin 25 mg tablet 25 mg PO DAILY #90 tabs 08/16/23 08/24/23 Rx (Jardiance) duloxetine 60 mg capsule,delayed See Rx Instructions .Route .COMPLEX 08/24/23 08/24/23 History release (Cymbalta) liothyronine 5 mcg tablet (Cytomel) See Rx Instructions .Route .COMPLEX 08/24/23 08/24/23 History pioglitazone 15 mg tablet (Actos) 15 mg PO DAILY 08/24/23 08/24/23 History Allergies Allergy/AdvReac Type Severity Reaction Status Date / Time No Known Drug Allergies Allergy Verified 08/24/23 14:07 Exam Vital Signs (past 8 hours): - 08/24/23 14:15 Temperature 97.0 F L Pulse Rate 102 H Respiratory Rate 20 Blood Pressure 152/86 H Pulse Oximetry 95 Oxygen Delivery Method Room Air Oxygen Delivery Method Room Air Const General: No acute distress Resp Effort & Inspection: normal respiratory effort Assessment & Plan Assessment and plan (1) Colon cancer screening: Status: Acute (2) Dysphagia: Qualifiers: Dysphagia type: esophageal phase Qualified Code(s): R13.19 - Other dysphagia Status: Acute Plan We reviewed the risks and benefits of EGD and colonoscopy and she would like to proceed.
[2023-08-24 15:50] VITALS: BP 122/68; PULSE 83; RESP 16; O2SAT 97
[2023-08-24 15:55] VITALS: BP 122/68; PULSE 89; RESP 16; TEMP 36.2; O2SAT 98
[2023-08-24 16:00] VITALS: BP 154/86; PULSE 81; RESP 16; TEMP 36.8; O2SAT 98
[2023-08-24 16:03] VITALS: BP 151/77; PULSE 80; RESP 16; TEMP 36.8; O2SAT 98
== END 2023-08-24 16:17 | disposition home or self-care (01) ==
PROVIDERS: PCP Family Medicine; Referring Provider Surgery; Visit Provider Surgery
PROC: 0DJ08ZZ Inspection of Upper Intestinal Tract, Via Natural or Artificial Opening Endoscopic (ICD-10-PCS; CPT 43235; principal; 2023-08-24 14:45)
PROC: 0DJD8ZZ Inspection of Lower Intestinal Tract, Via Natural or Artificial Opening Endoscopic (ICD-10-PCS; CPT 45378; 2023-08-24 14:45)
DX: R19.7 Diarrhea, unspecified (principal); K29.50 Unspecified chronic gastritis without bleeding; D12.2 Benign neoplasm of ascending colon; D12.5 Benign neoplasm of sigmoid colon; K62.1 Rectal polyp
CPT/HCPCS: 45385; 45380; 43239; J2704

== ENCOUNTER → 2023-12-27 13:44 | Outpatient (CLI) | payer MEDICARE, SELFPAY ==
[2023-12-27 15:44] LABS: Add Manual Diff / Slide Review NO; Basophils Absolute Auto 0 /uL (0-100); Basophils Percent Auto 0.6 % (0-2); Eosinophils Absolute Auto 200 /uL (0-450); Eosinophils Percent Auto 2.7 % (2-4); Hematocrit 42.1 % (36-46); Hemoglobin 13.9 g/dL (12.0-16.0); Lymphocytes Absolute Auto 1800 /uL (1100-4500); Lymphocytes Percent Auto 23.3 % (25-40); Mean Corpuscular Hemoglobin 30.7 PG (26-34); Mean Corpuscular Volume 92.9 fL (80-100); Monocytes Absolute Auto 600 /uL (0-900); Monocytes Percent Auto 7.9 % (3-14); Neutrophils Absolute Auto 5000 /uL (1500-7000); Neutrophils Percent Auto 65.5 % (50-75); Platelet Count 376 X10^3/uL (150-400); Red Blood Cell Count 4.53 X10^6/uL (4.0-5.2); White Blood Cell Count 7.7 X10^3/uL (4.5-11.0)
[2023-12-27 17:31] LABS: Alanine Aminotransferase 19 IU/L (<35); Albumin 4.3 g/dL (3.5-5.0); Albumin Globulin Ratio 1.5 (1.0-2.8); Alkaline Phosphatase 78 U/L (38-126); Aspartate Aminotransferase 23 IU/L (14-36); BUN Creatinine Ratio 25.7 (6-22); Bilirubin Total 0.4 mg/dL (0.2-1.3); Blood Urea Nitrogen 19 mg/dL (7-17); Calcium 9.5 mg/dL (8.4-10.2); Carbon Dioxide 22 mmol/L (22-32); Chloride 103 mmol/L (98-107); Cholesterol 145 mg/dL (140-199); Estimated Glomerular Filt Rate > 60 mL/min (>60); Globulin 2.8 g/dL (1.7-4.1); Glucose 158 mg/dL (80-110); HDL Cholesterol 65 mg/dL (40-60); HEMOLYSIS 20 (0-50); LDL Cholesterol Calculated 48 mg/dL (<100); Potassium 4.2 mmol/L (3.4-5.1); Sodium 137 mmol/L (137-145); Total Protein 7.1 g/dL (6.3-8.2); Triglycerides 159 mg/dL (35-150)
[2023-12-27 17:36] LABS: TSH w/ Reflex to FT4 1.65 uIU/mL (0.47-4.68)
== END ==
PROVIDERS: PCP Family Medicine; Referring Provider Family Medicine; Visit Provider Family Medicine
DX: I10 Essential (primary) hypertension (principal); E11.9 Type 2 diabetes mellitus without complications; E66.01 Morbid (severe) obesity due to excess calories; E03.9 Hypothyroidism, unspecified; E78.5 Hyperlipidemia, unspecified
CPT/HCPCS: 36415; 80053; 80061; 83036; 84443; 85025

== ENCOUNTER → 2024-06-27 09:43 | Outpatient (CLI) | payer MEDICARE, SELFPAY ==
[2024-06-27 10:27] LABS: Add Manual Diff / Slide Review NO; Basophils Absolute Auto 100 /uL (0-100); Basophils Percent Auto 0.8 % (0-2); Eosinophils Absolute Auto 200 /uL (0-450); Eosinophils Percent Auto 2.6 % (2-4); Hematocrit 42.4 % (36-46); Hemoglobin 14.1 g/dL (12.0-16.0); Lymphocytes Absolute Auto 1400 /uL (1100-4500); Lymphocytes Percent Auto 18.3 % (25-40); Mean Corpuscular HGB Conc 33.2 % (30-36); Mean Corpuscular Hemoglobin 30.3 PG (26-34); Mean Corpuscular Volume 91.3 fL (80-100); Monocytes Absolute Auto 600 /uL (0-900); Neutrophils Absolute Auto 5300 /uL (1500-7000); Neutrophils Percent Auto 70.3 % (50-75); Platelet Count 316 X10^3/uL (150-400); Red Blood Cell Count 4.65 X10^6/uL (4.0-5.2); Red Cell Distribution Width 13.7 % (11.6-14.8); White Blood Cell Count 7.6 X10^3/uL (4.5-11.0)
[2024-06-27 10:36] LABS: Alanine Aminotransferase 22 IU/L (<35); Albumin 4.2 g/dL (3.5-5.0); Albumin Globulin Ratio 1.6 (1.0-2.8); Alkaline Phosphatase 88 U/L (38-126); Aspartate Aminotransferase 21 IU/L (14-36); BUN Creatinine Ratio 34.3 (6-22); Bilirubin Total 0.5 mg/dL (0.2-1.3); Blood Urea Nitrogen 23 mg/dL (7-17); Carbon Dioxide 23 mmol/L (22-32); Chloride 106 mmol/L (98-107); Cholesterol 207 mg/dL (140-199); Estimated Glomerular Filt Rate > 60 mL/min (>60); Globulin 2.6 g/dL (1.7-4.1); Glucose 153 mg/dL (80-110); HDL Cholesterol 49 mg/dL (40-60); HEMOLYSIS 22 (0-50); LDL Cholesterol Calculated 102 mg/dL (<100); Potassium 4.8 mmol/L (3.4-5.1); Sodium 139 mmol/L (137-145); Total Protein 6.8 g/dL (6.3-8.2); Triglycerides 279 mg/dL (35-150)
== END ==
LOC: LAB 09:45
PROVIDERS: PCP Family Medicine; Referring Provider Family Medicine; Visit Provider Family Medicine
DX: E11.42 Type 2 diabetes mellitus with diabetic polyneuropathy (principal)
CPT/HCPCS: 36415; 80053; 80061; 83036; 85025

== ENCOUNTER → 2024-10-09 09:56 | Outpatient (CLI) | payer MEDICARE, SELFPAY ==
[2024-10-09 11:18] LABS: Cholesterol 188 mg/dL (140-199); HDL Cholesterol 85 mg/dL (40-60); LDL Cholesterol Calculated 76 mg/dL (<100); Triglycerides 136 mg/dL (35-150)
== END ==
PROVIDERS: PCP Family Medicine; Referring Provider Family Medicine; Visit Provider Family Medicine
DX: E78.5 Hyperlipidemia, unspecified (principal)
CPT/HCPCS: 36415; 80061

== ENCOUNTER → 2025-01-13 11:00 | Outpatient (CLI) | payer MEDICARE, SELFPAY ==
[2025-01-13 12:43] LABS: Hemoglobin A1C% w Est Avg Glu 6.9 % (4.0-6.0)
[2025-01-13 12:57] LABS: Alanine Aminotransferase 18 IU/L (<35); Albumin 4.5 g/dL (3.5-5.0); Albumin Globulin Ratio 1.7 (1.0-2.8); Alkaline Phosphatase 91 U/L (38-126); Blood Urea Nitrogen 30 mg/dL (7-17); Calcium 10.0 mg/dL (8.4-10.2); Carbon Dioxide 21 mmol/L (22-32); Chloride 105 mmol/L (98-107); Estimated Glomerular Filt Rate > 60 mL/min (>60); Globulin 2.7 g/dL (1.7-4.1); Glucose 149 mg/dL (70-99); HEMOLYSIS < 15 (0-50); Potassium 4.9 mmol/L (3.4-5.1); Sodium 137 mmol/L (137-145); Total Protein 7.2 g/dL (6.3-8.2)
== END ==
PROVIDERS: PCP Family Medicine; Referring Provider Family Medicine; Visit Provider Family Medicine
DX: E11.42 Type 2 diabetes mellitus with diabetic polyneuropathy (principal)
CPT/HCPCS: 36415; 80053; 83036

== ENCOUNTER → 2025-01-14 13:54 | Outpatient (CLI) | payer MEDICARE, SELFPAY | PROVIDERS: PCP Family Medicine; Visit Provider Family Medicine | DX: E11.42 Type 2 diabetes mellitus with diabetic polyneuropathy (principal) | CPT/HCPCS: 82043; 82570 ==